=== PATIENT | male | born 1960 | race American Indian/Alaskan Native ===

== ENCOUNTER 2021-02-25 10:21 | Outpatient (CLI) | payer MEDICAID ==
[2021-02-25] MEDS ORDERED: LIDOCAINE (4%) 40 MG/ML TOPICAL SOLN 50 ML BOTTLE TP ONE ×2 (11:03→13:00)
[2021-02-25] MEDS ORDERED: VITAMIN A & D OINT 56.7 GM TP SCH (12:00)
== END 2021-02-25 10:22 | disposition home or self-care (01) ==
LOC: WOUND 10:21
PROVIDERS: ATTEND Surgery
DX: E11.621 Type 2 diabetes mellitus with foot ulcer (principal); L97.512 Non-pressure chronic ulcer of other part of right foot with fat layer exposed; I10 Essential (primary) hypertension; E11.42 Type 2 diabetes mellitus with diabetic polyneuropathy; E66.9 Obesity, unspecified; Z68.39 Body mass index [BMI] 39.0-39.9, adult; L84 Corns and callosities; Z87.891 Personal history of nicotine dependence
CPT/HCPCS: 11042; A6250; G0463; 99204

== ENCOUNTER 2021-03-04 10:31 | Outpatient (CLI) | payer MEDICAID ==
[2021-03-04] MEDS ORDERED: LIDOCAINE (4%) 40 MG/ML TOPICAL SOLN 50 ML BOTTLE TP ONE (10:33)
== END 2021-03-04 10:32 | disposition home or self-care (01) ==
LOC: WOUND 10:31
PROVIDERS: ATTEND Surgery
DX: E11.621 Type 2 diabetes mellitus with foot ulcer (principal); L97.512 Non-pressure chronic ulcer of other part of right foot with fat layer exposed; E11.42 Type 2 diabetes mellitus with diabetic polyneuropathy; I10 Essential (primary) hypertension; L84 Corns and callosities; E66.9 Obesity, unspecified; Z68.39 Body mass index [BMI] 39.0-39.9, adult; Z87.891 Personal history of nicotine dependence

== ENCOUNTER 2021-03-11 11:03 | Outpatient (CLI) | payer MEDICAID ==
[2021-03-11] MEDS ORDERED: LIDOCAINE (4%) 40 MG/ML TOPICAL SOLN 50 ML BOTTLE TP ONE (11:09)
== END 2021-03-11 11:04 | disposition home or self-care (01) ==
LOC: WOUND 11:03
PROVIDERS: ATTEND Surgery
DX: E11.621 Type 2 diabetes mellitus with foot ulcer (principal); L97.512 Non-pressure chronic ulcer of other part of right foot with fat layer exposed; E11.42 Type 2 diabetes mellitus with diabetic polyneuropathy; I10 Essential (primary) hypertension; L84 Corns and callosities; E66.9 Obesity, unspecified; Z68.39 Body mass index [BMI] 39.0-39.9, adult; Z87.891 Personal history of nicotine dependence

== ENCOUNTER 2021-03-18 14:11 | Outpatient (CLI) | payer MEDICAID ==
[2021-03-18] MEDS ORDERED: LIDOCAINE (1%) 10 MG/1 ML VIAL 20 ML MDV INFILTRATI ONE (14:19)
== END 2021-03-18 14:12 | disposition home or self-care (01) ==
LOC: WOUND 14:11
PROVIDERS: ATTEND Surgery
DX: E11.621 Type 2 diabetes mellitus with foot ulcer (principal); L97.512 Non-pressure chronic ulcer of other part of right foot with fat layer exposed; L02.611 Cutaneous abscess of right foot; E11.42 Type 2 diabetes mellitus with diabetic polyneuropathy; I10 Essential (primary) hypertension; L84 Corns and callosities; E66.9 Obesity, unspecified; Z68.39 Body mass index [BMI] 39.0-39.9, adult; Z87.891 Personal history of nicotine dependence
CPT/HCPCS: 10060

== ENCOUNTER 2021-03-25 12:55 | Inpatient (IN) | payer MEDICAID ==
--- NOTE | 2021-03-25 13:09 | Event Note ---
ED Screening Note Date of service: 03/25/21 Time: 13:08 ED Screening Note: 60-year-old diabetic hypertensive female male who presents to the ED sent from the wound center for swelling to the right foot and lower leg. This initial assessment/diagnostic orders/clinical plan/treatment(s) is/are subject to change based on patients health status, clinical progression and re- assessment by fellow clinical providers in the ED. Further treatment and workup at subsequent clinical providers discretion. Patient/guardian urged not to elope from the ED as their condition may be serious if not clinically assessed and managed. Initial orders include: CBC, CMP lactic acid mainside eval
[2021-03-25 14:33] LABS: Basophils % (Auto) 0.3 % (0.0-1.8); Eosinophils # (Auto) 0.1 K/mm3 (0.0-0.4); Eosinophils % (Auto) 0.5 % (0.0-4.3); Hematocrit 33.6 % (35.5-45.6); Hemoglobin 11.1 gm/dl (11.8-15.2); Lymphocytes % (Auto) 17.8 % (13.4-35.0); Mean Corpuscular HGB Conc 33 % (32-34); Mean Corpuscular Volume 86 fl (84-94); Monocytes # (Auto) 1.1 K/mm3 (0.0-0.8); Monocytes % (Auto) 9.8 % (0.0-7.3); Platelet Count 366 K/mm3 (140-440); Red Cell Distribution Width 16.5 % (13.2-15.2)
[2021-03-25 14:51] LABS: Alanine Aminotransferase 14 units/L (7-56); Albumin 3.4 g/dL (3.9-5); BUN/Creatinine Ratio 17; Blood Urea Nitrogen 20 mg/dL (9-20); Calcium 9.1 mg/dL (8.4-10.2); Hemolysis Index 0
[2021-03-25] MEDS ORDERED: TETANUS,DIPH,PERTUSS(ACELL) VACCINE 0.5 ML SYRINGE IM ONE (16:45)
[2021-03-25] MEDS ORDERED: VANCOMYCIN/NS 1 GM/250 ML 1 GM/250 ML BAG IV ONE (16:45)
[2021-03-25] MEDS ORDERED: AMPICILLIN/SULBACTA 3GM/100ML 3 GM/100 ML BAG IV ONE (16:45)
--- NOTE | 2021-03-25 16:55 | Emergency Department Report ---
- General Chief Complaint: Extremity Injury, Lower Stated Complaint: LEG PAIN Time Seen by Provider: 03/25/21 16:35 Source: patient Mode of arrival: Wheelchair Limitations: No Limitations, Physical Limitation - History of Present Illness Initial Comments: CC: "The doctor sent me over here." HPI: This is a 60-year-old male with history of hypertension, diabetes mellitus, right foot ulcer, peripheral vascular disease who presents with right foot swelling and redness for the past 4 days. Patient was treated for diabetic foot ulcer by his fruit coordinator 2 to 3 months ago at [facility] in [place] with incision and debridement in operating room. In office patient had a subsequent debridement by fruit coordinator. Medical Technologist Hematology then referred patient to the wound care center Dr. Parry. He has been receiving wound care. He has not received antibiotics since previous hospitalization. Over the past 4 days he has had redness and swelling of the right lower extremity to just below the knee. Dr. Dixon referred patient to ER today after routine appointment in the wound care center. Patient has moderate pain. Significant redness. Patient has had malodorous purulent drainage from the right foot ulcer which is located at the dorsal surface midfoot. Patient had first appointment with Dr. Cedric (O) new vascular surgeon. Vascular surgeon recommended surgical intervention which will occur later this summer. Patient reports subjective fever today. -: Gradual, days(s) (4 days ago) Location: other (Right foot ulcer with redness and swelling extending from the toes to just below the knee) Extremity Location: Right: Lower Leg Place: home Associated Symptoms: pain, other (Pain redness swelling) Treatments Prior to Arrival: other (Wound care evaluation) - Related Data Previous Rx's Medication Instructions Recorded Last Taken Type oxyCODONE /ACETAMINOPHEN [Percocet 1 tab PO Q6HR PRN #20 tablet 03/19/21 Unknown Rx 325] Allergies Allergy/AdvReac Type Severity Reaction Status Date / Time No Known Allergies Allergy Verified 03/25/21 13:02 ED Review of Systems ROS: Stated complaint: LEG PAIN Other details as noted in HPI Comment: All other systems reviewed and negative Constitutional: fever Respiratory: denies: cough, shortness of breath Gastrointestinal: denies: abdominal pain, nausea, vomiting Skin: rash, lesions ED Past Medical Hx - Past Medical History Previous Medical History?: Yes Hx Hypertension: Yes Hx Diabetes: Yes Additional medical history: Peripheral vascular disease - Surgical History Past Surgical History?: Yes Additional Surgical History: FOOT SURGERY - Social History Smoking Status: Current Every Day Smoker Substance Use Type: None - Medications Home Medications: Home Medications Medication Instructions Recorded Confirmed Last Taken Type oxyCODONE /ACETAMINOPHEN [Percocet 1 tab PO Q6HR PRN #20 tablet 03/19/21 Unknown Rx 5/325] ED Physical Exam - General Limitations: No Limitations General appearance: alert, in no apparent distress - Head Head exam: Present: atraumatic, normocephalic - Eye Eye exam: Present: normal appearance - ENT ENT exam: Present: mucous membranes moist - Neck Neck exam: Present: normal inspection, full ROM - Respiratory Respiratory exam: Present: normal lung sounds bilaterally. Absent: respiratory distress, wheezes, rales, rhonchi - Cardiovascular Cardiovascular Exam: Present: normal rhythm, tachycardia, normal heart sounds. Absent: systolic murmur, diastolic murmur, rubs, gallop - GI/Abdominal GI/Abdominal exam: Present: soft, normal bowel sounds. Absent: distended, tenderness, guarding, rebound - Rectal Rectal exam: Present: deferred - Extremities Exam Extremities exam: Present: other (Right lower extremity just below the knee redness extending to the toes. Edematous pitting skin. Hyperpigmentation lower portion of the leg extending to the foot. Foot is hot to touch. Mid dorsum: Deep 2 x 3 ulcer with iodoform soaked with purulent drainage) - Neurological Exam Neurological exam: Present: alert, oriented X3 - Psychiatric Psychiatric exam: Present: normal affect, normal mood - Skin Skin exam: Present: warm, dry, intact, normal color. Absent: rash - Other Other exam information: 1+ DP pulse palpated ED Course Vital Signs 03/25/21 03/25/21 03/25/21 13:08 16:41 17:01 Temperature 98.5 F Pulse Rate 117 H 101 H 95 H Respiratory 20 16 21 Rate Blood Pressure 125/62 O2 Sat by Pulse 97 98 97 Oximetry 03/25/21 17:31 Temperature Pulse Rate 100 H Respiratory 14 Rate Blood Pressure 131/57 O2 Sat by Pulse 98 Oximetry ED Medical Decision Making - Lab Data Result diagrams: 03/25/21 13:54 03/25/21 13:54 Laboratory Results - last 24 hr 03/25/21 03/25/2121 13:54 13:54 13:54 WBC 11.1 H RBC 3.90 Hgb 11.1 L Hct 33.6 L MCV 86 MCH 29 MCHC 33 RDW 16.5 H Plt Count 366 Lymph % (Auto) 17.8 Payne % (Auto) 9.8 H Eos % (Auto) 0.5 Baso % (Auto) 0.3 Lymph # (Auto) 2.0 Payne # (Auto) 1.1 H Eos # (Auto) 0.1 Baso # (Auto) 0.0 Seg Neutrophils % 71.6 H Seg Neutrophils # 8.0 H Sodium 133 L Potassium 3.9 Chloride 93.6 L Carbon Dioxide 25 Anion Gap 18 BUN 20 Creatinine 1.2 Estimated GFR > 60 BUN/Creatinine Ratio 17 Glucose 138 H Lactic Acid 2.00 Calcium 9.1 Total Bilirubin 0.80 AST 13 ALT 14 Alkaline Phosphatase 71 Total Protein 8.7 H Albumin 3.4 L Albumin/Globulin Ratio 0.6 - Radiology Data Radiology results: report reviewed Patient Name: DOYLE BIRCH Gender: Male Date of : 1960 Referring Provider: HORACIO CHAMPION Organization: [facility] Accession Number: [id number] Requested Date: March 25, 2021 16:44 Report Status: Final Requested Procedure: 1 Procedure Description: XR foot 2V RT Modality: XR Findings Reporting MD: Moreno Benitez Dictation Time: March 25, 2021 16:19 Public Speaker: Not available Interior Design Faculty Member Date: CLINICAL DATA: FOOT ULCER INFECTION TECHNICAL DATA: Two views were obtained, AP and lateral. FINDINGS: Marked soft tissue edema especially over the ventral aspect of the ankle and foot Bone mineralization is normal. There is no acute fracture or dislocation. The visualized joint spaces are normal. IMPRESSION: Markedly abnormal soft tissues of the foot, recommend MR to exclude osteomyelitis Signer Name: Moreno Benitez MD Signed: 03/25/2021 4:19 PM Workstation Name: [id number] Patient Name: DOYLE BIRCH Gender: Male Date of : 1960 Referring Provider: HORACIO CHAMPION Organization: [facility] Accession Number: [id number] Requested Date: March 25, 2021 16:44 Report Status: Final Requested Procedure: 1 Procedure Description: VL venous duplex LE RT Modality: VL Findings Reporting MD: Tyron Clark Dictation Time: March 25, 2021 16:37 Public Speaker: Not available Interior Design Faculty Member Date: DUPLEX DOPPLER LOWER EXTREMITY VEINS, RIGHT INDICATION / CLINICAL INFORMATION: LEG SWELLING REDNESS. TECHNIQUE: Duplex doppler imaging was performed through the veins of the right lower extremity using venous compression and other maneuvers. COMPARISON: None available. FINDINGS: RIGHT COMMON FEMORAL VEIN: Negative. RIGHT FEMORAL VEIN: Negative. RIGHT POPLITEAL VEIN: Negative. RIGHT CALF VEINS: Negative. ADDITIONAL FINDINGS: None. IMPRESSION: 1. No sonographic evidence for DVT in the right lower extremity. Signer Name: Tyron Clark MD Signed: 03/25/2021 4:37 PM Workstation Name: [id number] - Medical Decision Making Diabetic foot ulcer, diabetic foot infection: Patient will require IV antibiotics for extensive cellulitis and risk of progression to necrotizing infection. White count 11,000, lactic acid 2.0. Dr. Renato Dixon general surgeon consulted. Treatment in the emergency department include: Tdap booster, Unasyn and vancomycin. In order to evaluate the foot and wound, I removed move the dressing that was placed by wound care staff. I left iodoform in place. Dressing was replaced by nurse body service team member. Patient is admitted to the hospital service in stable condition. Repeat heart rate 95 bpm. Critical care attestation.: If time is entered above; I have spent that time in minutes in the direct care of this critically ill patient, excluding procedure time. ED Disposition Clinical Impression: Diabetic foot ulcer, Diabetic infection of right foot, Cellulitis of right lower extremity Disposition: OP ADMIT IP TO THIS HOSP Is pt being admited?: Yes Does the pt Need Aspirin: No Condition: Stable Instructions: Diabetes Mellitus Type 2 in Adults (ED) Referrals: MELODIE STEVENSON MD [Primary Care Provider] - 3-5 Days
--- NOTE | 2021-03-25 17:24 | XRay Report ---
CLINICAL DATA: FOOT ULCER INFECTION TECHNICAL DATA: Two views were obtained, AP and lateral. FINDINGS: Marked soft tissue edema especially over the ventral aspect of the ankle and foot Bone mineralization is normal. There is no acute fracture or dislocation. The visualized joint spaces are normal. IMPRESSION: Markedly abnormal soft tissues of the foot, recommend MR to exclude osteomyelitis Signer Name: Moreno Benitez MD Signed: 03/25/2021 5:19 PM Workstation Name: [id number]
--- NOTE | 2021-03-25 17:42 | Vascular Lab Report ---
DUPLEX DOPPLER LOWER EXTREMITY VEINS, RIGHT INDICATION / CLINICAL INFORMATION: LEG SWELLING REDNESS. TECHNIQUE: Duplex doppler imaging was performed through the veins of the right lower extremity using venous comp ression and other maneuvers. COMPARISON: None available. FINDINGS: RIGHT COMMON FEMORAL VEIN: Negative. RIGHT FEMORAL VEIN: Negative. RIGHT POPLITEAL VEIN: Negative. RIGHT CALF VEINS: Negative. ADDITIONAL FINDINGS: None. IMPRESSION: 1. No sonographic evidence for DVT in the right lower extremity. Signer Name: Tyron Clark MD Signed: 03/25/2021 5:37 PM Workstation Name: [id number]
[2021-03-25] MEDS ORDERED: MORPHINE 4 MG/1 ML INJ IV ONE (18:05)
[2021-03-25] MEDS ORDERED: ONDANSETRON 4 MG/2 ML INJ IV ONE (18:05)
[2021-03-25] MEDS ORDERED: oxyCODONE /ACETAMINOPHEN 5-325MG TAB PO ONE ×2 (18:16→19:10)
[2021-03-25] MEDS ORDERED: HYDROmorphone 1 MG/1 ML INJ IV PRN (23:25)
[2021-03-25] MEDS ORDERED: ONDANSETRON 4 MG/2 ML INJ IV PRN (23:25)
[2021-03-25] MEDS ORDERED: METOCLOPRAMIDE 10 MG/2 ML INJ IV PRN (23:25)
--- NOTE | 2021-03-25 23:25 | History and Physical Report ---
History of Present Illness Date of examination: 03/25/21 Date of admission: 03/25/21 16:57 Chief complaint: Right foot infection and abscess for 3 to 4 weeks History of present illness: 60-year-old -Micron[place] male with history of hypertension, diabetes, peripheral arterial disease comes in for right foot ulcer, swelling and redness for the last 4 days. Patient apparently saw her fisherman helper about 1 to 2 months ago at [facility] in [place] and had a incision and drainage followed by placement of a drain in the right foot dorsal aspect. Patient was placed on antibiotics. Patient was referred to the wound care center and was receiving wound care. Over the past 3 to 4 days patient has been having increasing redness and swelling of the right lower extremity after knee. Patient was referred by Dr. Dixon for emergency room for further care. Patient had first appointment with her in with a poor effort for right [facility] and [place]. Patient has purulent discharge from the right foot ulcer. Patient was also recommended vascular surgery consult at that time. - Past Medical History Previous Medical History?: Yes Hx Hypertension: Yes Hx Diabetes: Yes Additional medical history: Peripheral vascular disease - Surgical History Past Surgical History?: Yes Additional Surgical History: FOOT SURGERY - Social History Smoking Status: Current Every Day Smoker Substance Use Type: None - Medications Home Medications: Home Medications Medication Instructions Recorded Confirmed Last Taken Type oxyCODONE /ACETAMINOPHEN [Percocet 1 tab PO Q6HR PRN #20 tablet 03/19/21 Unknown Rx 5/325] Review of Systems ROS: Skin right foot ulcer with extensive cellulitis up to the right knee, drain present in the right foot incision and drainage place Constitutional no weight loss or weight gain no fever or chills HEENT no sore throat no post nasal drip no diplopia Neck no neck stiffness no lymph gland enlargement Chest and lungs no shortness of breath cough or wheezing CVS no chest pain no diaphoresis no palpitations GI no nausea no vomiting no diarrhea Genitourinary system no dysuria no flank pain Musculoskeletal system no muscle pains no joint pains 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 no seizures Psychiatric no depression no homicidal or suicidal tendencies Hematologic no lymphedema or bruising Endocrine no polydipsia no polyuria no cold intolerance no heat intolerance Medications and Allergies Allergies Allergy/AdvReac Type Severity Reaction Status Date / Time No Known Allergies Allergy Verified 03/25/21 13:02 Home Medications Medication Instructions Recorded Confirmed Last Taken Type oxyCODONE /ACETAMINOPHEN [Percocet 1 tab PO Q6HR PRN #20 tablet 03/19/21 Unknown Rx 5/325] Exam - Constitutional Vitals: Temp Pulse Resp BP Pulse Ox 98.9 F 102 H 20 132/70 95 03/25/21 20:11 03/25/21 20:11 03/25/21 20:11 03/25/21 20:11 03/25/21 20:11 General appearance: Present: no acute distress, well-nourished - EENT Eyes: Present: PERRL ENT: hearing intact, clear oral mucosa - Neck Neck: Present: supple, normal ROM - Respiratory Respiratory effort: normal Respiratory: bilateral: CTA - Cardiovascular Heart rate: 78 Rhythm: regular Heart Sounds: Present: S1 & S2. Absent: rub, click - Extremities Extremities: pulses symmetrical, No edema, abnormal (Right foot swollen with incision and drainage wound with a drain and purulent discharge. Right foot swollen with swelling extending up to the right knee) Extremity abnormal: other (Right foot incision wound with a drain. Purulent drainage present. Swelling of the right foot and swelling of the right leg present up to the knee) Peripheral Pulses: within normal limits - Abdominal General gastrointestinal: Present: soft, non-tender, non-distended, normal bowel sounds Male genitourinary: Present: normal - Integumentary Integumentary: Present: clear, warm, dry - Musculoskeletal Musculoskeletal: gait normal, strength equal bilaterally - Psychiatric Psychiatric: appropriate mood/affect, intact judgment & insight - Neurologic Neurologic: CNII-XII intact, moves all extremities Results - Labs CBC & Chem 7: 03/25/21 13:54 03/25/21 13:54 Labs: Laboratory Last Values WBC 11.1 K/mm3 (4.5-11.0) H 03/25/21 13:54 RBC 3.90 M/mm3 (3.65-5.03) 03/25/21 13:54 Hgb 11.1 gm/dl (11.8-15.2) L 03/25/21 13:54 Hct 33.6 % (35.5-45.6) L 03/25/21 13:54 MCV 86 fl (84-94) 03/25/21 13:54 MCH 29 pg (28-32) 03/25/21 13:54 MCHC 33 % (32-34) 03/25/21 13:54 RDW 16.5 % (13.2-15.2) H 03/25/21 13:54 Plt Count 366 K/mm3 (140-440) 03/25/21 13:54 Lymph % (Auto) 17.8 % (13.4-35.0) 03/25/21 13:54 Sunflower % (Auto) 9.8 % (0.0-7.3) H 03/25/21 13:54 Eos % (Auto) 0.5 % (0.0-4.3) 03/25/21 13:54 Baso % (Auto) 0.3 % (0.0-1.8) 03/25/21 13:54 Lymph # (Auto) 2.0 K/mm3 (1.2-5.4) 03/25/21 13:54 Sunflower # (Auto) 1.1 K/mm3 (0.0-0.8) H 03/25/21 13:54 Eos # (Auto) 0.1 K/mm3 (0.0-0.4) 03/25/21 13:54 Baso # (Auto) 0.0 K/mm3 (0.0-0.1) 03/25/21 13:54 Seg Neutrophils % 71.6 % (40.0-70.0) H 03/25/21 13:54 Seg Neutrophils # 8.0 K/mm3 (1.8-7.7) H 03/25/21 13:54 Sodium 133 mmol/L (137-145) L 03/25/21 13:54 Potassium 3.9 mmol/L (3.6-5.0) 03/25/21 13:54 Chloride 93.6 mmol/L (98-107) L 03/25/21 13:54 Carbon Dioxide 25 mmol/L (22-30) 03/25/21 13:54 Anion Gap 18 mmol/L 03/25/21 13:54 BUN 20 mg/dL (9-20) 03/25/21 13:54 Creatinine 1.2 mg/dL (0.8-1.3) 03/25/21 13:54 Estimated GFR > 60 ml/min 03/25/21 13:54 BUN/Creatinine Ratio 17 % 03/25/21 13:54 Glucose 138 mg/dL (75-100) H 03/25/21 13:54 Lactic Acid 2.00 mmol/L (0.7-2.0) 03/25/21 13:54 Calcium 9.1 mg/dL (8.4-10.2) 03/25/21 13:54 Total Bilirubin 0.80 mg/dL (0.1-1.2) 03/25/21 13:54 AST 13 units/L (5-40) 03/25/21 13:54 ALT 14 units/L (7-56) 03/25/21 13:54 Alkaline Phosphatase 71 units/L (35-129) 03/25/21 13:54 Total Protein 8.7 g/dL (6.3-8.2) H 03/25/21 13:54 Albumin 3.4 g/dL (3.9-5) L 03/25/21 13:54 Albumin/Globulin Ratio 0.6 % 03/25/21 13:54 Short CBC 03/25/21 Range/Units 13:54 WBC 11.1 H (4.5-11.0) K/mm3 Hgb 11.1 L (11.8-15.2) gm/dl Hct 33.6 L (35.5-45.6) % Plt Count 366 (140-440) K/mm3 BMP 03/25/21 13:54 Sodium 133 L Potassium 3.9 Chloride 93.6 L Carbon Dioxide 25 BUN 20 Creatinine 1.2 Glucose 138 H Calcium 9.1 Liver Function 03/25/21 Range/Units 13:54 Total Bilirubin 0.80 (0.1-1.2) mg/dL AST 13 (5-40) units/L ALT 14 (7-56) units/L Alkaline Phosphatase 71 (35-129) units/L Albumin 3.4 L (3.9-5) g/dL Chin/IV: Voiding Method Urinal Assessment and Plan Advance Directives: Yes (Full code) VTE prophylaxis?: Chemical Plan of care discussed with patient/family: Yes - Patient Problems (1) SIRS (systemic inflammatory response syndrome) Current Visit: Yes Status: Acute Plan to address problem: Patient has leukocytosis and tachycardia secondary to right lower extremity cellulitis and right foot abscess (2) Cellulitis of right lower extremity Current Visit: Yes Status: Acute Plan to address problem: Patient initiated on IV antibiotics in the form of Unasyn and vancomycin Wound cultures Surgery consult ID consult (3) Hypertension Current Visit: Yes Status: Chronic Qualifiers: Hypertension type: essential hypertension Qualified Code(s): I10 - Emily freeman (primary) hypertension Plan to address problem: Continue antihypertensives and adjust medications as necessary (4) Type 2 diabetes mellitus Current Visit: Yes Status: Chronic Qualifiers: Diabetes mellitus terminal make up operator insulin use: unspecified senior care insulin use status Plan to address problem: Tight control of blood glucose levels Check hemoglobin A1c Adjust insulin (5) Peripheral arterial disease Current Visit: Yes Status: Chronic Plan to address problem: Duplex scan of right lower extremity Vascular surgery consult (6) DVT prophylaxis Current Visit: Yes Status: Acute Plan to address problem: On heparin and GI prophylaxis
[2021-03-25] MEDS ORDERED: SODIUM CHLORIDE 0.9% 1000 ML 1,000 ML IV SCH (23:30)
[2021-03-25] MEDS ORDERED: VANCOMYCIN PHARMACY TO DOSE IV SCH (23:45)
[2021-03-26] MEDS: AMPICILLIN/SULBACTA 3GM/100ML 3 GM/100 ML BAG IV SCH ×3 (00:20→13:44)
[2021-03-26] MEDS: oxyCODONE /ACETAMINOPHEN 5-325MG TAB PO PRN ×3 (00:20→21:23)
[2021-03-26] MEDS ORDERED: VANCOMYCIN 2,000 MG in SODIUM CHLORIDE 0.9% 500 ML 500 ML IV SCH (04:00)
[2021-03-26 08:26] LABS: Basophils % (Auto) 0.3 % (0.0-1.8); Eosinophils % (Auto) 0.5 % (0.0-4.3); Hemoglobin 10.7 gm/dl (11.8-15.2); Lymphocytes % (Auto) 18.8 % (13.4-35.0); Mean Corpuscular HGB Conc 33 % (32-34); Mean Corpuscular Volume 84 fl (84-94); Monocytes # (Auto) 1.1 K/mm3 (0.0-0.8); Platelet Count 356 K/mm3 (140-440); Red Cell Distribution Width 16.1 % (13.2-15.2)
[2021-03-26] MEDS: FAMOTIDINE 20 MG TAB PO SCH ×3 (08:39→21:18)
[2021-03-26] MEDS: INSULIN LISPRO 100 UNIT/ML SUB-Q SCH ×4 (08:39→23:37)
[2021-03-26 09:03] LABS: Alanine Aminotransferase 24 units/L (7-56); Albumin 2.7 g/dL (3.9-5); BUN/Creatinine Ratio 15; Blood Urea Nitrogen 15 mg/dL (9-20); Calcium 8.9 mg/dL (8.4-10.2); Hemolysis Index 10
--- NOTE | 2021-03-26 13:56 | Vascular Lab Report ---
DUPLEX DOPPLER LOWER EXTREMITY ARTERIAL, BILATERAL INDICATION: Right foot ulcer with cellulitis. TECHNIQUE: Arterial duplex examination of both lower extremities performed using B-mode, color flow and spectral Doppler assessment. FINDINGS: RIGHT: Common Femoral Artery: PSV 134 cm/sec. Triphasic waveform. Proximal SFA: PSV 163 cm/sec. Triphasic waveform. Mid SFA: PSV 133 cm/sec. Triphasic waveform. Distal SFA: PSV 137 cm/sec. Biphasic waveform. Popliteal artery: PSV 136 cm/sec. Biphasic waveform. Posterior tibial artery: PSV 95 cm/sec. Biphasic waveform. Dorsalis Pedis Artery: PSV 89 cm/sec. Biphasic waveform. LEFT: Common Femoral Artery: PSV 137 cm/sec. Triphasic waveform. Proximal SFA: PSV 150 cm/sec. Triphasic waveform. Mid SFA: PSV 107 cm/sec. Triphasic waveform. Distal SFA: PSV 90 cm/sec. Triphasic waveform. Popliteal artery: PSV 84 cm/sec. Triphasic waveform. Posterior tibial artery: PSV 138 cm/sec. Triphasic waveform. Dorsalis Pedis Artery: PSV 36 cm/sec. Biphasic waveform. Right LENA: Not obtained, patient could not tolerate measurement due to pain. Left LENA: 1.29. IMPRESSION: No sonographic evidence of hemodynamically significant lower extremity peripheral artery disease. Signer Name: Dwayne Vela MD Signed: 03/26/2021 1:52 PM Workstation Name: [id number]
--- NOTE | 2021-03-26 14:07 | Consultation ---
History of Present Illness Consult date: 03/26/21 Chief complaint: Right foot wound - History of present illness History of present illness: 60-year-old male with history of diabetes, morbid obesity who presents to the ER as a referral from Dr. Dixon who most recently saw the patient in the wound care center on 03/25/2021. The patient has had a abscess of his right d orsal foot for more than 1 month. He underwent incision and drainage by his rag production worker as an outpatient and then was referred to the wound care clinic. Patient also underwent an MRI of the right foot as an outpatient. MRI was reviewed last Thursday and showed an underlying right foot abscess with evidence of early osteomyelitis. He underwent incision and drainage with unroofing of the abscess in the wound care center on 03/18 by me. He followed up with Dr. Dixon at [facility] yesterday and complained of increased redness and pain in his right leg which was new for 4 to 5 days. He was sent to the ER for further management. Patient is admitted for right lower extremity cellulitis and has undergone x-ray of the right foot along with venous duplex. He has also scheduled to have arterial vascular studies of the lower extremities with vascular consultation. Patient was started on IV antibiotics. Patient states he is having sharp pain in the area of cellulitis which is controlled with current pain regimen. He is able to ambulate. He states he was having low-grade fevers at home. No nausea or vomiting. No chest pain or shortness of breath. Past History Past Medical History: diabetes, hypertension, hyperlipidemia, other (Obesity) Past Surgical History: Other (Right foot I&D) Social history: no significant social history Family history: no significant family history Medications and Allergies Allergies Allergy/AdvReac Type Severity Reaction Status Date / Time No Known Allergies Allergy Verified 03/25/21 13:02 Home Medications Medication Instructions Recorded Confirmed Last Taken Type oxyCODONE /ACETAMINOPHEN [Percocet 1 tab PO Q6HR PRN #20 tablet 03/19/21 Unknown Rx 5/325] Active Meds: Active Medications Acetaminophen (Acetaminophen 325 Mg Tab) 650 mg PO Q4H PRN PRN Reason: Pain MILD(1-3)/Fever >100.5/JULIAN Famotidine (Famotidine 20 Mg Tab) 20 mg PO BID LISA Last Admin: 03/26/21 09:05 Dose: Not Given Documented by: Hydromorphone HCl (Hydromorphone 1 Mg/1 Ml Inj) 0.5 mg IV Q3H PRN PRN Reason: Pain , Severe (7-10) Ampicillin Sodium/Sulbactam Sodium (Unasyn/Ns 3 Gm/100 Ml) 3 gm in 100 mls @ 100 mls/hr IV Q6HR [facility]; Protocol Last Admin: 03/26/21 13:44 Dose: 100 mls/hr Documented by: Vancomycin HCl 1,750 mg/ (Sodium Chloride) 535 mls @ 333.333 mls/hr IV Q12H LISA Insulin Human Lispro (Insulin Lispro 100 Unit/Ml) 0 unit SUB-Q ACHS [facility]; Protocol Last Admin: 03/26/21 13:50 Dose: Not Given Documented by: Metoclopramide HCl (Metoclopramide 10 Mg/2 Ml Inj) 10 mg IV Q6H PRN PRN Reason: Nausea And Vomiting Ondansetron HCl (Ondansetron 4 Mg/2 Ml Inj) 4 mg IV Q3H PRN PRN Reason: Nausea And Vomiting Oxycodone/Acetaminophen (Oxycodone /Acetaminophen 5-325mg Tab) 2 tab PO Q6H PRN PRN Reason: Pain, Moderate (4-6) Last Admin: 03/26/21 13:56 Dose: 2 tab Documented by: Sodium Chloride (Sodium Chloride 0.9% 10 Ml Flush Syringe) 10 ml IV BID [facility] Last Admin: 03/26/21 13:40 Dose: 10 ml Documented by: Sodium Chloride (Sodium Chloride 0.9% 10 Ml Flush Syringe) 10 ml IV PRN PRN PRN Reason: LINE FLUSH Review of Systems All systems: negative (10 point ROS performed and negative except for that listed in HPI) Exam Vital Signs Temp Pulse Resp BP Pulse Ox 98.5 F 117 H 20 125/62 97 03/25/21 13:08 03/25/21 13:08 03/25/21 13:08 03/25/21 13:08 03/25/21 13:08 Narrative exam: Gen.: Awake, alert, oriented x3. No apparent distress ENT: Trachea midline. No lymphadenopathy. No scleral icterus or conjunctival pallor CV: S1, S2 present Respiratory: No audible wheezes Extremities: Right lower extremity with 3+ pitting edema of the lower leg extending to the foot. There is cellulitis present involving the anterior lower leg. There is a right foot dressing in place which is clean, dry, intact. There is mild tenderness to palpation of the anterior lower leg. There is no te nderness of the calf area. There is no edema, erythema of the left leg. Results - Labs 03/26/21 08:01 03/26/21 08:01 Abnormal lab results 03/25/21 03/25/21 03/25/21 Range/Units 13:54 13:54 20:52 WBC 11.1 H (4.5-11.0) K/mm3 Hgb 11.1 L (11.8-15.2) gm/dl Hct 33.6 L (35.5-45.6) % RDW 16.5 H (13.2-15.2) % [place] % (Auto) 9.8 H (0.0-7.3) % [place] # (Auto) 1.1 H (0.0-0.8) K/mm3 Seg Neutrophils % 71.6 H (40.0-70.0) % Seg Neutrophils # 8.0 H (1.8-7.7) K/mm3 Sodium 133 L (137-145) mmol/L Chloride 93.6 L (98-107) mmol/L Glucose 138 H (75-100) mg/dL POC Glucose 109 H (70-105) mg/dL Hemoglobin A1c (4-6) % AST (5-40) units/L Total Protein 8.7 H (6.3-8.2) g/dL Albumin 3.4 L (3.9-5) g/dL 03/26/21 03/26/21 03/26/21 Range/Units 07:38 08:01 08:01 WBC (4.5-11.0) K/mm3 Hgb 10.7 L (11.8-15.2) gm/dl Hct 32.0 L (35.5-45.6) % RDW 16.1 H (13.2-15.2) % [place] % (Auto) 10.0 H (0.0-7.3) % [place] # (Auto) 1.1 H (0.0-0.8) K/mm3 Seg Neutrophils % 70.4 H (40.0-70.0) % Seg Neutrophils # (1.8-7.7) K/mm3 Sodium 130 L (137-145) mmol/L Chloride 95.3 L (98-107) mmol/L Glucose 124 H (75-100) mg/dL POC Glucose 121 H (70-105) mg/dL Hemoglobin A1c (4-6) % AST 44 H (5-40) units/L Total Protein 8.3 H (6.3-8.2) g/dL Albumin 2.7 L (3.9-5) g/dL 03/26/21 Range/Units 08:01 WBC (4.5-11.0) K/mm3 Hgb (11.8-15.2) gm/dl Hct (35.5-45.6) % RDW (13.2-15.2) % [place] % (Auto) (0.0-7.3) % [place] # (Auto) (0.0-0.8) K/mm3 Seg Neutrophils % (40.0-70.0) % Seg Neutrophils # (1.8-7.7) K/mm3 Sodium (137-145) mmol/L Chloride (98-107) mmol/L Glucose (75-100) mg/dL POC Glucose (70-105) mg/dL Hemoglobin A1c 6.7 H (4-6) % AST (5-40) units/L Total Protein (6.3-8.2) g/dL Albumin (3.9-5) g/dL Diabetes panel 03/25/21 03/26/21 03/26/21 Range/Units 13:54 08:01 08:01 Sodium 133 L 130 L (137-145) mmol/L Potassium 3.9 4.0 (3.6-5.0) mmol/L Chloride 93.6 L 95.3 L (98-107) mmol/L Carbon Dioxide 25 22 (22-30) mmol/L BUN 20 15 (9-20) mg/dL Creatinine 1.2 1.0 (0.8-1.3) mg/dL Glucose 138 H 124 H (75-100) mg/dL Hemoglobin A1c 6.7 H (4-6) % Calcium 9.1 8.9 (8.4-10.2) mg/dL AST 13 44 H (5-40) units/L ALT 14 24 (7-56) units/L Alkaline Phosphatase 71 97 (35-129) units/L Total Protein 8.7 H 8.3 H (6.3-8.2) g/dL Albumin 3.4 L 2.7 L (3.9-5) g/dL Calcium panel 03/25/21 03/26/21 Range/Units 13:54 08:01 Calcium 9.1 8.9 (8.4-10.2) mg/dL Albumin 3.4 L 2.7 L (3.9-5) g/dL Pituitary panel 03/25/21 03/26/21 Range/Units 13:54 08:01 Sodium 133 L 130 L (137-145) mmol/L Potassium 3.9 4.0 (3.6-5.0) mmol/L Chloride 93.6 L 95.3 L (98-107) mmol/L Carbon Dioxide 25 22 (22-30) mmol/L BUN 20 15 (9-20) mg/dL Creatinine 1.2 1.0 (0.8-1.3) mg/dL Glucose 138 H 124 H (75-100) mg/dL Calcium 9.1 8.9 (8.4-10.2) mg/dL Adrenal panel 03/25/21 03/26/21 Range/Units 13:54 08:01 Sodium 133 L 130 L (137-145) mmol/L Potassium 3.9 4.0 (3.6-5.0) mmol/L Chloride 93.6 L 95.3 L (98-107) mmol/L Carbon Dioxide 25 22 (22-30) mmol/L BUN 20 15 (9-20) mg/dL Creatinine 1.2 1.0 (0.8-1.3) mg/dL Glucose 138 H 124 H (75-100) mg/dL Calcium 9.1 8.9 (8.4-10.2) mg/dL Total Bilirubin 0.80 1.20 (0.1-1.2) mg/dL AST 13 44 H (5-40) units/L ALT 14 24 (7-56) units/L Alkaline Phosphatase 71 97 (35-129) units/L Total Protein 8.7 H 8.3 H (6.3-8.2) g/dL Albumin 3.4 L 2.7 L (3.9-5) g/dL - Imaging Additional studies: X-ray right foot Venous duplex right lower extremity Arterial ultrasound lower extremity Assessment and Plan 60-year-old male with diabetic right foot wound and right lower extremity cellulitis Xray right foot - "Markedly abnormal soft tissues of the foot, recommend MR to exclude osteomyelitis." Venous duplex LE - no DVT Arterial u/s LE - "No sonographic evidence of hemodynamically significant lower extremity peripheral arterial disease." Plan: 1. Diabetic diet. HbA1C is 6.7 2. Strict glucose control 3. prn pain control 4. vascular surgery consulted 5. ID consulted - d/w Dr. Redmond. Patient had recent outpatient MRI R foot with evidence of early osteomyelitis. Will follow up with rotary kiln operator regarding cultures obtained in clinic last week. If no cultures available, will culture wound. 6. continue wound care - packing wound with mesalt daily. 7. monitor for improvement in cellulitis/edema - may need reimaging with CT or MR if no improvement. 8. on IV abx Thank you, please call with questions.
--- NOTE | 2021-03-26 14:30 | Progress Note ---
Assessment and Plan Assessment and plan: --SIRS (systemic inflammatory response syndrome) Current Visit: Yes Status: Acute Patient has leukocytosis and tachycardia secondary to right lower extremity cellulitis and right foot abscess --Diabetic wound/ of right lower extremity Current Visit: Yes Status: Acute Patient initiated on IV antibiotics in the form of Unasyn and vancomycin Wound cultures, Surgery evaluation noted and appreciated Check MRI right foot to rule out osteomyelitis ID consult, surgery evaluation noted and appreciated -- Hypertension Current Visit: Yes Status: Chronic : Continue antihypertensives and adjust medications as necessary --Hyponatremia; Normal saline, monitor electrolytes --Severe protein calorie malnutrition; Hypoalbuminemia nutrition supplements. Nutrition consul --Type 2 diabetes mellitus Current Visit: Yes Status: Chronic t Tight control of blood glucose levels Check hemoglobin A1c Adjust insulin --Peripheral arterial disease Current Visit: Yes Status: Chronic Duplex scan of right lower extremity Vascular surgery consult --DVT prophylaxis Current Visit: Yes Status: Acute On heparin and GI prophylaxis Advance Directives: Yes (Full code) VTE prophylaxis?: Chemical Plan of care discussed with patient/family: Yes Closely monitor the patient and adjust management as needed History Interval history: I have seen and examined the patient at the bedside Patient's chart and medications reviewed Patient complains of some right foot pain Receiving IV antibiotics and pain medications Vital signs noted Hospitalist Physical - Constitutional Vitals: Temp Pulse Resp BP Pulse Ox 98.6 F 98 H 16 147/78 97 03/26/21 07:35 03/26/21 07:35 03/26/21 07:35 03/26/21 07:35 03/26/21 07:35 General appearance: Present: no acute distress, well-nourished - EENT Eyes: Present: PERRL, EOM intact - Neck Neck: Present: supple, normal ROM - Respiratory Respiratory effort: normal Respiratory: bilateral: diminished, rhonchi, negative: rales, wheezing - Cardiovascular Rhythm: regular Heart Sounds: Present: S1 & S2 - Extremities Extremities: no ischemia, No edema, abnormal (Right foot dressing in place) - Abdominal General gastrointestinal: soft, non-tender, non-distended, normal bowel sounds - Integumentary Integumentary: Present: clear, warm - Psychiatric Psychiatric: appropriate mood/affect, cooperative - Neurologic Neurologic: CNII-XII intact, moves all extremities Results - Labs CBC & Chem 7: 03/26/21 08:01 03/26/21 08:01 Labs: Laboratory Last Values WBC 10.5 K/mm3 (4.5-11.0) 03/26/21 08:01 RBC 3.80 M/mm3 (3.65-5.03) 03/26/21 08:01 Hgb 10.7 gm/dl (11.8-15.2) L 03/26/21 08:01 Hct 32.0 % (35.5-45.6) L 03/26/21 08:01 MCV 84 fl (84-94) 03/26/21 08:01 MCH 28 pg (28-32) 03/26/21 08:01 MCHC 33 % (32-34) 03/26/21 08:01 RDW 16.1 % (13.2-15.2) H 03/26/21 08:01 Plt Count 356 K/mm3 (140-440) 03/26/21 08:01 Lymph % (Auto) 18.8 % (13.4-35.0) 03/26/21 08:01 [place] % (Auto) 10.0 % (0.0-7.3) H 03/26/21 08:01 Eos % (Auto) 0.5 % (0.0-4.3) 03/26/21 08:01 Baso % (Auto) 0.3 % (0.0-1.8) 03/26/21 08:01 Lymph # (Auto) 2.0 K/mm3 (1.2-5.4) 03/26/21 08:01 [place] # (Auto) 1.1 K/mm3 (0.0-0.8) H 03/26/21 08:01 Eos # (Auto) 0.0 K/mm3 (0.0-0.4) 03/26/21 08:01 Baso # (Auto) 0.0 K/mm3 (0.0-0.1) 03/26/21 08:01 Seg Neutrophils % 70.4 % (40.0-70.0) H 03/26/21 08:01 Seg Neutrophils # 7.4 K/mm3 (1.8-7.7) 03/26/21 08:01 Sodium 130 mmol/L (137-145) L 03/26/21 08:01 Potassium 4.0 mmol/L (3.6-5.0) 03/26/21 08:01 Chloride 95.3 mmol/L (98-107) L 03/26/21 08:01 Carbon Dioxide 22 mmol/L (22-30) 03/26/21 08:01 Anion Gap 17 mmol/L 03/26/21 08:01 BUN 15 mg/dL (9-20) 03/26/21 08:01 Creatinine 1.0 mg/dL (0.8-1.3) 03/26/21 08:01 Estimated GFR > 60 ml/min 03/26/21 08:01 BUN/Creatinine Ratio 15 % 03/26/21 08:01 Glucose 124 mg/dL (75-100) H 03/26/21 08:01 POC Glucose 121 mg/dL (70-105) H 03/26/21 07:38 Hemoglobin A1c 6.7 % (4-6) H 03/26/21 08:01 Lactic Acid 2.00 mmol/L (0.7-2.0) 03/25/21 13:54 Calcium 8.9 mg/dL (8.4-10.2) 03/26/21 08:01 Total Bilirubin 1.20 mg/dL (0.1-1.2) 03/26/21 08:01 AST 44 units/L (5-40) H 03/26/21 08:01 ALT 24 units/L (7-56) 03/26/21 08:01 Alkaline Phosphatase 97 units/L (35-129) 03/26/21 08:01 Total Protein 8.3 g/dL (6.3-8.2) H 03/26/21 08:01 Albumin 2.7 g/dL (3.9-5) L 03/26/21 08:01 Albumin/Globulin Ratio 0.5 % 03/26/21 08:01 Chin/IV: Voiding Method Urinal Active Medications - Current Medications Current Medications: Generic Name Dose Route Start Last Admin Trade Name Freq PRN Reason Stop Dose Admin Acetaminophen 650 mg 03/25/21 23:25 Acetaminophen 325 Mg Tab PO Q4H PRN Pain MILD(1-3)/Fever >100.5/JULIAN Famotidine 20 mg 03/26/21 10:00 03/26/21 09:05 Famotidine 20 Mg Tab PO Not Given BID LISA Hydromorphone HCl 0.5 mg 03/25/21 23:25 Hydromorphone 1 Mg/1 Ml Inj IV Q3H PRN Pain , Severe (7-10) Ampicillin Sodium/Sulbactam Sodium 3 gm in 100 mls @ 100 mls/hr 03/26/21 00:00 03/26/21 13:44 Unasyn/Ns 3 Gm/100 Ml IV 100 mls/hr Q6HR LISA Administration Protocol Vancomycin HCl 1,750 mg/ 535 mls @ 333.333 mls/hr 03/26/21 18:00 Sodium Chloride IV Q12H [facility] Insulin Human Lispro 0 unit 03/26/21 07:30 03/26/21 13:50 Insulin Lispro 100 Unit/Ml SUB-Q Not Given ACHS [facility] Protocol Metoclopramide HCl 10 mg 03/25/21 23:25 Metoclopramide 10 Mg/2 Ml Inj IV Q6H PRN Nausea And Vomiting Ondansetron HCl 4 mg 03/25/21 23:25 Ondansetron 4 Mg/2 Ml Inj IV Q3H PRN Nausea And Vomiting Oxycodone/Acetaminophen 2 tab 03/25/21 23:25 03/26/21 13:56 Oxycodone /Acetaminophen 5-325mg Tab PO 2 tab Q6H PRN Administration Pain, Moderate (4-6) Sodium Chloride 10 ml 03/26/21 10:00 03/26/21 13:40 Sodium Chloride 0.9% 10 Ml Flush Syringe IV 10 ml BID LISA Administration Sodium Chloride 10 ml 03/25/21 23:25 Sodium Chloride 0.9% 10 Ml Flush Syringe IV PRN PRN LINE FLUSH Nutrition/Malnutrition Assess - Dietary Evaluation Nutrition/Malnutrition Findings: Nutrition Notes Start: 03/26/21 11:10 Freq: Status: Active Protocol: Document 03/26/21 11:11 ZAIN (Rec: 03/26/21 11:16 [email or web address] [id number]) Nutrition Notes Need for 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 Pt reports good appetite and knowledge of food sources of CHO. He says his foot got infected because he underwent 2 previous procedures and was sent home without abx. He says he controls his BS " pretty good". Burn Absent Trauma Absent Current % PO Good (75-100%) Minimum of two criteria No Nutrition Intervention Change Diet Order: Add Consistent CHO modifier to current diet order Revisit per MD consult or patient Sign Off request:
--- NOTE | 2021-03-26 15:30 | Consultation ---
History of Present Illness - Reason for Consult Consult date: 03/26/21 Right foot infection Requesting physician: GUILHERME BORJAS - History of Present Illness 60-year-old -Citizen Of [place] male with history of hypertension, diabetes, peripheral arterial disease comes in for right foot ulcer, swelling and redness for the last 4 days. Patient apparently saw her hand tool filer about 1 to 2 months ago at [facility] in [place] and had a incision and drainage followed by placement of a drain in the right foot dorsal aspect. Patient was placed on antibiotics. Patient was referred to the wound care center and was receiving wound care. Over the past 3 to 4 days patient has been having increasing redness and swelling of the right lower extremity after knee. Patient was referred by Dr. Dixon for emergency room for further care. Patient had first appointment with her in with a poor effort for right [facility] and [place]. Patient has purulent discharge from the right foot ulcer. Patient was also recommended vascular surgery consult at that time. Vascular consulted for vascular evaluation given underlying cellulitis and nonhealing wound. Discussed with Dr. Parry, patient has had I&D x2 of the right dorsum of the foot with recurrence, and Dr. Parry performed a deeper I&D reaching a deeper pocket than previously performed. Patient now has erythema of the right leg and has developed cellulitis. Patient has a palpable right DP and PT, and left PT. Left DP is nonpalpable. Past Medical History Previous Medical History?: Yes Hx Hypertension: Yes Hx Diabetes: Yes Additional medical history: Peripheral vascular disease Surgical History Past Surgical History?: Yes Additional Surgical History: FOOT SURGERY Social History Smoking Status: Current Every Day Smoker Substance Use Type: None Past History Past Medical History: diabetes, hypertension, hyperlipidemia, other (Obesity) Past Surgical History: Other (Right foot I&D) Social history: no significant social history Family history: no significant family history Medications and Allergies Allergies Allergy/AdvReac Type Severity Reaction Status Date / Time No Known Allergies Allergy Verified 03/25/21 13:02 Home Medications Medication Instructions Recorded Confirmed Last Taken Type oxyCODONE /ACETAMINOPHEN [Percocet 1 tab PO Q6HR PRN #20 tablet 03/19/21 Unknown Rx 5/325] Active Meds: Active Medications Acetaminophen (Acetaminophen 325 Mg Tab) 650 mg PO Q4H PRN PRN Reason: Pain MILD(1-3)/Fever >100.5/JULIAN Famotidine (Famotidine 20 Mg Tab) 20 mg PO BID [facility] Last Admin: 03/26/21 09:05 Dose: Not Given Documented by: Hydromorphone HCl (Hydromorphone 1 Mg/1 Ml Inj) 0.5 mg IV Q3H PRN PRN Reason: Pain , Severe (7-10) Ampicillin Sodium/Sulbactam Sodium (Unasyn/Ns 3 Gm/100 Ml) 3 gm in 100 mls @ 100 mls/hr IV Q6HR [facility]; Protocol Last Admin: 03/26/21 13:44 Dose: 100 mls/hr Documented by: Vancomycin HCl 1,750 mg/ (Sodium Chloride) 535 mls @ 333.333 mls/hr IV Q12H [facility] Insulin Human Lispro (Insulin Lispro 100 Unit/Ml) 0 unit SUB-Q ACHS [facility]; Protocol Last Admin: 03/26/21 13:50 Dose: Not Given Documented by: Metoclopramide HCl (Metoclopramide 10 Mg/2 Ml Inj) 10 mg IV Q6H PRN PRN Reason: Nausea And Vomiting Ondansetron HCl (Ondansetron 4 Mg/2 Ml Inj) 4 mg IV Q3H PRN PRN Reason: Nausea And Vomiting Oxycodone/Acetaminophen (Oxycodone /Acetaminophen 5-325mg Tab) 2 tab PO Q6H PRN PRN Reason: Pain, Moderate (4-6) Last Admin: 03/26/21 13:56 Dose: 2 tab Documented by: Sodium Chloride (Sodium Chloride 0.9% 10 Ml Flush Syringe) 10 ml IV BID [facility] Last Admin: 03/26/21 13:40 Dose: 10 ml Documented by: Sodium Chloride (Sodium Chloride 0.9% 10 Ml Flush Syringe) 10 ml IV PRN PRN PRN Reason: LINE FLUSH Review of Systems All systems: negative (see HPI) Exam - Constitutional Vitals: Temp Pulse Resp BP Pulse Ox 98.6 F 98 H 16 147/78 97 03/26/21 07:35 03/26/21 07:35 03/26/21 07:35 03/26/21 07:35 03/26/21 07:35 General appearance: Present: no acute distress - EENT Eyes: Present: EOM intact ENT: hearing intact - Respiratory Respiratory effort: normal - Extremities Extremities: abnormal (Palpable right PT and DP, and palpable left PT. 2+ edema of the right lower extremity with erythema and tenderness to touch.) - Abdominal General gastrointestinal: Present: other (Obese) - Psychiatric Psychiatric: appropriate mood/affect, cooperative Results - Labs CBC & Chem 7: 03/26/21 08:01 03/26/21 08:01 Labs: Abnormal lab results 03/25/21 03/26/21 03/26/21 Range/Units 20:52 07:38 08:01 Hgb 10.7 L (11.8-15.2) gm/dl Hct 32.0 L (35.5-45.6) % RDW 16.1 H (13.2-15.2) % [place] % (Auto) 10.0 H (0.0-7.3) % [place] # (Auto) 1.1 H (0.0-0.8) K/mm3 Seg Neutrophils % 70.4 H (40.0-70.0) % Sodium (137-145) mmol/L Chloride (98-107) mmol/L Glucose (75-100) mg/dL POC Glucose 109 H 121 H (70-105) mg/dL Hemoglobin A1c (4-6) % AST (5-40) units/L Total Protein (6.3-8.2) g/dL Albumin (3.9-5) g/dL 03/26/21 03/26/21 Range/Units 08:01 08:01 Hgb (11.8-15.2) gm/dl Hct (35.5-45.6) % RDW (13.2-15.2) % [place] % (Auto) (0.0-7.3) % [place] # (Auto) (0.0-0.8) K/mm3 Seg Neutrophils % (40.0-70.0) % Sodium 130 L (137-145) mmol/L Chloride 95.3 L (98-107) mmol/L Glucose 124 H (75-100) mg/dL POC Glucose (70-105) mg/dL Hemoglobin A1c 6.7 H (4-6) % AST 44 H (5-40) units/L Total Protein 8.3 H (6.3-8.2) g/dL Albumin 2.7 L (3.9-5) g/dL Assessment and Plan 60-year-old male with diabetes with ulcer of the right dorsum of the foot. Has palpable right PT and DP. Noninvasive ultrasounds demonstrated adequate blood flow to heal. Recommend infectious disease consult for cellulitis. No vascular interventions planned.
--- NOTE | 2021-03-26 16:17 | Consultation ---
History of Present Illness - Reason for Consult Consult date: 03/26/21 osteomyelitis, abscess R foot Requesting physician: JUAN CROCKER - History of Present Illness The patient is a 60-year-old male with morbid obesity, diabetes mellitus type 2, admitted to the hospital yesterday with worsening of his right foot infection. He had initially undergone an abscess drainage outpatient by podiatry about a month ago and was not following up with the wound care clinic. Due to concern for ongoing infection, he underwent an MRI as an outpatient and another I&D to drain an abscess. There were also findings of possible early osteomyelitis. Due to worsening, came to the ER. Is currently afebrile. Labs showed mild leukocytosis on admission. Review of Systems: General: no fevers,chills or rigors HEENT: no new visual disturbance Respiratory: No cough, sputum, hemoptysis or shortness of breath Cardiovascular: No chest pain, syncope Gastrointestinal: No nausea, vomiting or diarrhea Genitourinary: No dysuria or hematuria Musculoskeletal: No new or worsening neck pain or back pain Neurologic: No headaches, seizures Hematologic: No easy bruising or bleeding Endocrine: No night sweats or acute weight loss Skin: negative for rash, jaundice Psychiatric: No suicidal or homicidal ideation Past History Past Medical History: diabetes, hypertension, hyperlipidemia, other (Obesity) Past Surgical History: Other (Right foot I&D) Social history: no significant social history Family history: no significant family history Medications and Allergies Allergies Allergy/AdvReac Type Severity Reaction Status Date / Time No Known Allergies Allergy Verified 03/25/21 13:02 Home Medications Medication Instructions Recorded Confirmed Last Taken Type oxyCODONE /ACETAMINOPHEN [Percocet 1 tab PO Q6HR PRN #20 tablet 03/19/21 Unknown Rx 5/325] Active Meds: Active Medications Acetaminophen (Acetaminophen 325 Mg Tab) 650 mg PO Q4H PRN PRN Reason: Pain MILD(1-3)/Fever >100.5/JULIAN Famotidine (Famotidine 20 Mg Tab) 20 mg PO BID LISA Last Admin: 03/26/21 09:05 Dose: Not Given Documented by: Hydromorphone HCl (Hydromorphone 1 Mg/1 Ml Inj) 0.5 mg IV Q3H PRN PRN Reason: Pain , Severe (7-10) Vancomycin HCl 1,750 mg/ (Sodium Chloride) 535 mls @ 333.333 mls/hr IV Q12H [facility] Insulin Human Lispro (Insulin Lispro 100 Unit/Ml) 0 unit SUB-Q ACHS LISA; Protocol Last Admin: 03/26/21 13:50 Dose: Not Given Documented by: Metoclopramide HCl (Metoclopramide 10 Mg/2 Ml Inj) 10 mg IV Q6H PRN PRN Reason: Nausea And Vomiting Ondansetron HCl (Ondansetron 4 Mg/2 Ml Inj) 4 mg IV Q3H PRN PRN Reason: Nausea And Vomiting Oxycodone/Acetaminophen (Oxycodone /Acetaminophen 5-325mg Tab) 2 tab PO Q6H PRN PRN Reason: Pain, Moderate (4-6) Last Admin: 03/26/21 13:56 Dose: 2 tab Documented by: Sodium Chloride (Sodium Chloride 0.9% 10 Ml Flush Syringe) 10 ml IV BID [facility] Last Admin: 03/26/21 13:40 Dose: 10 ml Documented by: Sodium Chloride (Sodium Chloride 0.9% 10 Ml Flush Syringe) 10 ml IV PRN PRN PRN Reason: LINE FLUSH Physical Examination - Physical Exam Narrative exam: Physical Exam: Constitutional: Alert, cooperative. No acute distress Head, Ears, Nose: Normocephalic, atraumatic. External ears, nose normal Eyes: Conjunctivae/corneas clear. No icterus. No ptosis. Neck: Supple, no meningeal signs Cardiovascular: S1, S2 normal. Respiratory: Good air entry, clear to auscultation bilaterally GI: Soft, non-tender; bowel sounds normal. No peritoneal signs Musculoskeletal: Right foot dorsum with wound with packing. Skin: No rash or abscess Hem/Lymphatic: No palpable cervical or supraclavicular nodes. No lymphangitis Psych: Mood ok. Affect normal Neurological: Awake, alert, oriented. No gross abnormality - Constitutional Vitals: Vital Signs Temp Pulse Resp BP Pulse Ox 98.6 F 98 H 16 147/78 97 03/26/21 07:35 03/26/21 07:35 03/26/21 07:35 03/26/21 07:35 03/26/21 07:35 Temperature -Last 24 Hours Temperature 98.6 F Temperature 98.3 F Temperature 99.4 F Temperature 98.9 F Temperature 98.0 F Results - Labs CBC & Chem 7: 03/26/21 08:01 03/26/21 08:01 Labs: Abnormal lab results 03/25/21 03/26/21 03/26/21 Range/Units 20:52 07:38 08:01 Hgb 10.7 L (11.8-15.2) gm/dl Hct 32.0 L (35.5-45.6) % RDW 16.1 H (13.2-15.2) % [place] % (Auto) 10.0 H (0.0-7.3) % [place] # (Auto) 1.1 H (0.0-0.8) K/mm3 Seg Neutrophils % 70.4 H (40.0-70.0) % Sodium (137-145) mmol/L Chloride (98-107) mmol/L Glucose (75-100) mg/dL POC Glucose 109 H 121 H (70-105) mg/dL Hemoglobin A1c (4-6) % AST (5-40) units/L Total Protein (6.3-8.2) g/dL Albumin (3.9-5) g/dL 03/26/21 03/26/21 Range/Units 08:01 08:01 Hgb (11.8-15.2) gm/dl Hct (35.5-45.6) % RDW (13.2-15.2) % [place] % (Auto) (0.0-7.3) % [place] # (Auto) (0.0-0.8) K/mm3 Seg Neutrophils % (40.0-70.0) % Sodium 130 L (137-145) mmol/L Chloride 95.3 L (98-107) mmol/L Glucose 124 H (75-100) mg/dL POC Glucose (70-105) mg/dL Hemoglobin A1c 6.7 H (4-6) % AST 44 H (5-40) units/L Total Protein 8.3 H (6.3-8.2) g/dL Albumin 2.7 L (3.9-5) g/dL Assessment and Plan Cultures: None available A/P: 60-year-old male with morbid obesity, diabetes mellitus type 2: #Right foot diabetic infection, cellulitis, recent abscess and MRI with evidence of osteomyelitis: Status post I&D more than a month ago by podiatry, more recently I&D at the wound care center. No vascular disease noted. #Diabetes mellitus type 2: Maintain glycemic control Recs: -Discussed with Dr. Crocker, follow-up outpatient cultures -Empiric ceftriaxone, vancomycin for now -anticipate PICC line and IV abx upon discharge Tahir Redmond MD, FACP [facility] ([facility] O: [phone] F: [phone]
[2021-03-26] MEDS: VANCOMYCIN 1,750 MG in SODIUM CHLORIDE 0.9% 500 ML 500 ML IV SCH (17:23)
[2021-03-26] MEDS: cefTRIAXone/NS 2 GM/100 ML 2 GM/100 ML BAG IV SCH (19:49)
[2021-03-27] MEDS: VANCOMYCIN 1,750 MG in SODIUM CHLORIDE 0.9% 500 ML 500 ML IV SCH ×2 (05:22→18:20)
[2021-03-27] MEDS: ACETAMINOPHEN 325 MG TAB PO PRN ×2 (05:22→21:42)
[2021-03-27 05:54] LABS: BUN/Creatinine Ratio 10; Blood Urea Nitrogen 10 mg/dL (9-20); Calcium 9.1 mg/dL (8.4-10.2); Hemolysis Index 2
[2021-03-27] MEDS: INSULIN LISPRO 100 UNIT/ML SUB-Q SCH ×4 (08:57→21:12)
[2021-03-27] MEDS: oxyCODONE /ACETAMINOPHEN 5-325MG TAB PO PRN ×2 (08:58→21:11)
[2021-03-27] MEDS: FAMOTIDINE 20 MG TAB PO SCH ×2 (11:16→21:12)
--- NOTE | 2021-03-27 11:55 | Event Note ---
Date: 03/27/21 Patient chart reviewed. Afebrile. BP and HR stable. WBC normal. 1. Outpatient wound cultures were not sent from I&D on 03/18/21 - will order wound cultures to be obtained today 2. Dressing changes daily 3. continue abx per ID - anticipated dc with IV abx per notes 4. outpatient MRI report to be scanned into system 5. prn pain control 6. Discussed with implant polisher who will see patient tomorrow
--- NOTE | 2021-03-27 12:57 | Progress Note ---
Assessment and Plan Cultures: None yet A/P: 60-year-old male with morbid obesity, diabetes mellitus type 2: #Right foot diabetic infection, cellulitis, recent abscess and MRI with evidence of osteomyelitis: Status post I&D more than a month ago by podiatry, more recently I&D at the wound care center. No vascular disease noted. Cellulitis is not much improved. #Diabetes mellitus type 2: Maintain glycemic control Recs: -Discussed with Dr. Parry, getting wound culture -continue ceftriaxone, vancomycin for now -anticipate PICC line and IV abx upon discharge -limb elevation Tahir Redmond MD, FACP [facility] ([facility] O: [phone] F: [phone] Subjective Date of service: 03/27/21 Interval history: No fever. Not much improvement in RLE. No pain. Objective - Exam Narrative Exam: Physical Exam: Constitutional: Alert, cooperative. No acute distress Head, Ears, Nose: Normocephalic, atraumatic. External ears, nose normal Eyes: Conjunctivae/corneas clear. No icterus. No ptosis. Neck: Supple, no meningeal signs Cardiovascular: S1, S2 normal. Respiratory: Good air entry, clear to auscultation bilaterally GI: Soft, non-tender; bowel sounds normal. No peritoneal signs Musculoskeletal: Right foot dorsum with wound with packing. RLE swelling, redness, warmth and tenderness + Skin: No rash or abscess Hem/Lymphatic: No palpable cervical or supraclavicular nodes. No lymphangitis Psych: Mood ok. Affect normal Neurological: Awake, alert, oriented. No gross abnormality - Constitutional Vitals: Vital Signs Temp Pulse Resp BP Pulse Ox 98.8 F 91 H 18 145/78 96 03/27/21 11:49 03/27/21 11:49 03/27/21 11:49 03/27/21 11:49 03/27/21 11:49 Temperature -Last 24 Hours Temperature 98.8 F Temperature 97.9 F Temperature 99.0 F Temperature 98.5 F Temperature 98.8 F Temperature 98.3 F - Labs CBC & Chem 7: 03/26/21 08:01 03/27/21 04:34 Labs: Abnormal lab results 03/26/21 03/26/21 03/27/21 Range/Units 16:07 21:54 04:34 Chloride 97.1 L (98-107) mmol/L Glucose 119 H (75-100) mg/dL POC Glucose 128 H 144 H (70-105) mg/dL 03/27/21 Range/Units 07:52 Chloride (98-107) mmol/L Glucose (75-100) mg/dL POC Glucose 131 H (70-105) mg/dL
[2021-03-27] MEDS: cefTRIAXone/NS 2 GM/100 ML 2 GM/100 ML BAG IV SCH (17:40)
--- NOTE | 2021-03-27 18:21 | Progress Note ---
Assessment and Plan Assessment and plan: --SIRS (systemic inflammatory response syndrome) Current Visit: Yes Status: Acute Patient has leukocytosis and tachycardia secondary to right lower extremity cellulitis and right foot abscess --Diabetic wound/ of right lower extremity Current Visit: Yes Status: Acute Patient initiated on IV antibiotics in the form of Unasyn and vancomycin Wound cultures, Surgery evaluation noted and appreciated Check MRI right foot to rule out osteomyelitis ID consult, surgery evaluation noted and appreciated --Right foot osteomyelitis; Continue Rocephin and vancomycin per ID Follow wound cultures, may need PICC placement Patient long-term IV antibiotics, Will follow ID/surgery recommendations -- Hypertension Current Visit: Yes Status: Chronic : Continue antihypertensives and adjust medications as necessary. --Hyponatremia; Normal saline, monitor electrolytes --Severe protein calorie malnutrition; Hypoalbuminemia nutrition supplements. Nutrition consul --Type 2 diabetes mellitus /A1c 6.7 Current Visit: Yes Status: Chronic t Patient's blood sugars are well controlled Blood sugars less than 200, A1c 6.7 Patient is on high doses of 3 oral hypoglycemics Hold right now, and resume as needed Continue sliding scale coverage --Peripheral arterial disease Current Visit: Yes Status: Chronic Duplex scan of right lower extremity Vascular surgery consult --DVT prophylaxis Current Visit: Yes Status: Acute On heparin and GI prophylaxis Advance Directives: Yes (Full code) VTE prophylaxis?: Chemical Plan of care discussed with patient/family: Yes Closely monitor the patient and adjust management as needed Plan of care reviewed with the patient and his nurse Sales Promoter recommendations noted and appreciated 03/27/2021; osteomyelitis right foot, on Rocephin and Vanco ID considering long-term antibiotics and PICC placement Patient's blood sugars are reasonable level, did not need oral hypoglycemics Discussed with patient in detail that we will resume his home diabetic medications Once his blood sugars are high, patient verbalized understanding History Interval history: I have seen and examined the patient at the bedside this afternoon Patient's chart and medications reviewed Patient feels slightly better Has osteomyelitis of the right foot, on IV antibiotics Patient is concerned about his home medication I reviewed the home medications and explained to him That his blood sugars are ranging below 200, and did not require Multiple oral hypoglycemics. Vital signs stable Hospitalist Physical - Constitutional Vitals: Temp Pulse Resp BP Pulse Ox 98.8 F 91 H 18 145/78 96 03/27/21 11:49 03/27/21 11:49 03/27/21 11:49 03/27/21 11:49 03/27/21 11:49 General appearance: Present: no acute distress, well-nourished, obese (Morbidly obese) - EENT Eyes: Present: PERRL, EOM intact - Neck Neck: Present: supple, normal ROM - Respiratory Respiratory effort: normal Respiratory: bilateral: diminished, negative: rales, rhonchi, wheezing - Cardiovascular Rhythm: regular Heart Sounds: Present: S1 & S2 - Extremities Extremities: no ischemia, abnormal (Right foot osteomyelitis/dressing in place) - Abdominal General gastrointestinal: soft, non-tender, non-distended, normal bowel sounds - Integumentary Integumentary: Present: clear, warm - Psychiatric Psychiatric: appropriate mood/affect, cooperative - Neurologic Neurologic: CNII-XII intact, moves all extremities Results - Labs CBC & Chem 7: 03/26/21 08:01 03/27/21 04:34 Labs: Laboratory Last Values WBC 10.5 K/mm3 (4.5-11.0) 03/26/21 08:01 RBC 3.80 M/mm3 (3.65-5.03) 03/26/21 08:01 Hgb 10.7 gm/dl (11.8-15.2) L 03/26/21 08:01 Hct 32.0 % (35.5-45.6) L 03/26/21 08:01 MCV 84 fl (84-94) 03/26/21 08:01 MCH 28 pg (28-32) 03/26/21 08:01 MCHC 33 % (32-34) 03/26/21 08:01 RDW 16.1 % (13.2-15.2) H 03/26/21 08:01 Plt Count 356 K/mm3 (140-440) 03/26/21 08:01 Lymph % (Auto) 18.8 % (13.4-35.0) 03/26/21 08:01 [place] % (Auto) 10.0 % (0.0-7.3) H 03/26/21 08:01 Eos % (Auto) 0.5 % (0.0-4.3) 03/26/21 08:01 Baso % (Auto) 0.3 % (0.0-1.8) 03/26/21 08:01 Lymph # (Auto) 2.0 K/mm3 (1.2-5.4) 03/26/21 08:01 [place] # (Auto) 1.1 K/mm3 (0.0-0.8) H 03/26/21 08:01 Eos # (Auto) 0.0 K/mm3 (0.0-0.4) 03/26/21 08:01 Baso # (Auto) 0.0 K/mm3 (0.0-0.1) 03/26/21 08:01 Seg Neutrophils % 70.4 % (40.0-70.0) H 03/26/21 08:01 Seg Neutrophils # 7.4 K/mm3 (1.8-7.7) 03/26/21 08:01 Sodium 137 mmol/L (137-145) D 03/27/21 04:34 Potassium 3.8 mmol/L (3.6-5.0) 03/27/21 04:34 Chloride 97.1 mmol/L (98-107) L 03/27/21 04:34 Carbon Dioxide 26 mmol/L (22-30) 03/27/21 04:34 Anion Gap 18 mmol/L 03/27/21 04:34 BUN 10 mg/dL (9-20) 03/27/21 04:34 Creatinine 1.0 mg/dL (0.8-1.3) 03/27/21 04:34 Estimated GFR > 60 ml/min 03/27/21 04:34 BUN/Creatinine Ratio 10 % 03/27/21 04:34 Glucose 119 mg/dL (75-100) H 03/27/21 04:34 POC Glucose 161 mg/dL (70-105) H 03/27/21 11:49 Hemoglobin A1c 6.7 % (4-6) H 03/26/21 08:01 Lactic Acid 2.00 mmol/L (0.7-2.0) 03/25/21 13:54 Calcium 9.1 mg/dL (8.4-10.2) 03/27/21 04:34 Total Bilirubin 1.20 mg/dL (0.1-1.2) 03/26/21 08:01 AST 44 units/L (5-40) H 03/26/21 08:01 ALT 24 units/L (7-56) 03/26/21 08:01 Alkaline Phosphatase 97 units/L (35-129) 03/26/21 08:01 Total Protein 8.3 g/dL (6.3-8.2) H 03/26/21 08:01 Albumin 2.7 g/dL (3.9-5) L 03/26/21 08:01 Albumin/Globulin Ratio 0.5 % 03/26/21 08:01 Chin/IV: Voiding Method Urinal Active Medications - Current Medications Current Medications: Generic Name Dose Route Start Last Admin Trade Name Freq PRN Reason Stop Dose Admin Acetaminophen 650 mg 03/25/21 23:25 03/27/21 05:22 Acetaminophen 325 Mg Tab PO 650 mg Q4H PRN Administration Pain MILD(1-3)/Fever >100.5/JULIAN Famotidine 20 mg 03/26/21 10:00 03/27/21 11:16 Famotidine 20 Mg Tab PO 20 mg BID LISA Administration Furosemide 40 mg 03/28/21 10:00 Furosemide 40 Mg Tab PO DAILY LISA Hydromorphone HCl 0.5 mg 03/25/21 23:25 Hydromorphone 1 Mg/1 Ml Inj IV Q3H PRN Pain , Severe (7-10) Vancomycin HCl 1,750 mg/ 535 mls @ 333.333 mls/hr 03/26/21 18:00 03/27/21 18:20 Sodium Chloride IV 333.333 mls/hr Q12H LISA Administration Ceftriaxone Sodium 2 gm in 100 mls @ 200 mls/hr 03/26/21 18:00 03/27/21 17:40 Rocephin/Ns 2 Gm/100 Ml IV 200 mls/hr Q24H LISA Administration Protocol Insulin Human Lispro 0 unit 03/26/21 07:30 03/27/21 16:49 Insulin Lispro 100 Unit/Ml SUB-Q 3 unit ACHS LISA Administration Protocol Metoclopramide HCl 10 mg 03/25/21 23:25 Metoclopramide 10 Mg/2 Ml Inj IV Q6H PRN Nausea And Vomiting Miscellaneous Medication 90 mg 03/28/21 10:00 Nifedipine [Nifedipine] PO DAILY LISA Ondansetron HCl 4 mg 03/25/21 23:25 Ondansetron 4 Mg/2 Ml Inj IV Q3H PRN Nausea And Vomiting Oxycodone/Acetaminophen 2 tab 03/25/21 23:25 03/27/21 08:58 Oxycodone /Acetaminophen 5-325mg Tab PO 2 tab Q6H PRN Administration Pain, Moderate (4-6) Sodium Chloride 10 ml 03/26/21 10:00 03/27/21 11:17 Sodium Chloride 0.9% 10 Ml Flush Syringe IV 10 ml BID LISA Administration Sodium Chloride 10 ml 03/25/21 23:25 Sodium Chloride 0.9% 10 Ml Flush Syringe IV PRN PRN LINE FLUSH Nutrition/Malnutrition Assess - Dietary Evaluation Nutrition/Malnutrition Findings: Nutrition Notes Start: 03/26/21 11:10 Freq: Status: Active Protocol: Document 03/26/21 11:11 ZAIN (Rec: 03/26/21 11:16 [email or web address] [id number]) Nutrition Notes Need for Assessment generated from: extension professor Initial or Follow up Brief Note Current Diagnosis Diabetes,Hypertension Other Pertinent Diagnosis (R) foot ulcer, RLE cellulitis , SIRS, peripheral artery dz Current Diet Cardiac Labs/Tests A1C 6.7 Pertinent Medications Reviewed Height 6 ft Weight 135.5 kg [place] Body Weight (kg) 80.90 BMI 40.5 Intake Prior to Admission Good Weight Status Morbidly Obese Subjective/Other Information Pt screened for skin risk and new onset of DM, however, pt reports being diabetic for 20 yrs. Pt reports good appetite and knowledge of food sources of CHO. He says his foot got infected because he underwent 2 previous procedures and was sent home without abx. He says he controls his BS " pretty good". Burn Absent Trauma Absent Current % PO Good (75-100%) Minimum of two criteria No Nutrition Intervention Change Diet Order: Add Consistent CHO modifier to current diet order Revisit per MD consult or patient Sign Off request:
[2021-03-28] MEDS: VANCOMYCIN 1,750 MG in SODIUM CHLORIDE 0.9% 500 ML 500 ML IV SCH ×2 (06:57→18:20)
[2021-03-28] MEDS: oxyCODONE /ACETAMINOPHEN 5-325MG TAB PO PRN ×2 (08:23→18:15)
[2021-03-28] MEDS: INSULIN LISPRO 100 UNIT/ML SUB-Q SCH ×4 (08:53→23:01)
[2021-03-28] MEDS ORDERED: NIFEDIPINE 20 MG PO SCH (10:00)
[2021-03-28] MEDS: FUROSEMIDE 40 MG TAB PO SCH (11:23)
[2021-03-28] MEDS: FAMOTIDINE 20 MG TAB PO SCH ×2 (11:23→21:26)
[2021-03-28] MEDS: NIFEdipine XL 90 MG TAB PO SCH (11:24)
--- NOTE | 2021-03-28 11:51 | Progress Note ---
Assessment and Plan Cultures: Wound culture: in process. A/P: 60-year-old male with morbid obesity, diabetes mellitus type 2: #Right foot diabetic infection, cellulitis, recent abscess and MRI with evidence of osteomyelitis: Status post I&D more than a month ago by podiatry, more recently I&D at the wound care center. No vascular disease noted. Cellulitis is not much improved. #Diabetes mellitus type 2: Maintain glycemic control Recs: -f/u wound culture -continue ceftriaxone, vancomycin for now -anticipate PICC line and IV abx upon discharge -limb elevation Tahri Redmond MD, FACP [facility] O: [phone] F: [phone] Subjective Date of service: 03/28/21 Interval history: No fever. Swelling in RLE is improving. Pain also getting better. Objective - Exam Narrative Exam: Physical Exam: Constitutional: Alert, cooperative. No acute distress Head, Ears, Nose: Normocephalic, atraumatic. External ears, nose normal Eyes: Conjunctivae/corneas clear. No icterus. No ptosis. Neck: Supple, no meningeal signs Cardiovascular: S1, S2 normal. Respiratory: Good air entry, clear to auscultation bilaterally GI: Soft, non-tender; bowel sounds normal. No peritoneal signs Musculoskeletal: Right foot dorsum with wound with packing. RLE swelling, redness, warmth and tenderness + Skin: No rash or abscess Hem/Lymphatic: No palpable cervical or supraclavicular nodes. No lymphangitis Psych: Mood ok. Affect normal Neurological: Awake, alert, oriented. No gross abnormality - Constitutional Vitals: Vital Signs Temp Pulse Resp BP Pulse Ox 98.3 F 75 18 131/68 97 03/28/21 11:29 03/28/21 11:29 03/28/21 11:29 03/28/21 11:29 03/28/21 11:29 Temperature -Last 24 Hours Temperature 98.3 F Temperature 98.4 F Temperature 98.6 F Temperature 98.8 F Temperature 100.6 F - Labs CBC & Chem 7: 03/26/21 08:01 03/27/21 04:34 Labs: Abnormal lab results 03/27/21 03/27/21 03/27/21 Range/Units 11:49 16:13 20:58 POC Glucose 161 H 181 H 134 H (70-105) mg/dL 03/28/21 Range/Units 07:39 POC Glucose 155 H (70-105) mg/dL
--- NOTE | 2021-03-28 14:47 | Progress Note ---
Assessment and Plan Assessment and plan: --SIRS (systemic inflammatory response syndrome) Current Visit: Yes Status: Acute Patient has leukocytosis and tachycardia secondary to right lower extremity cellulitis and right foot abscess --Diabetic wound/ of right lower extremity Current Visit: Yes Status: Acute Patient initiated on IV antibiotics in the form of Unasyn and vancomycin Wound cultures, Surgery evaluation noted and appreciated Check MRI right foot to rule out osteomyelitis ID consult, surgery evaluation noted and appreciated --Right foot osteomyelitis; Continue Rocephin and vancomycin per ID Follow wound cultures, may need PICC placement Patient long-term IV antibiotics, Will follow ID/surgery recommendations -- Hypertension Current Visit: Yes Status: Chronic : Continue antihypertensives and adjust medications as necessary. --Hyponatremia; Normal saline, monitor electrolytes --Severe protein calorie malnutrition; Hypoalbuminemia nutrition supplements. Nutrition consul --Type 2 diabetes mellitus /A1c 6.7 Current Visit: Yes Status: Chronic t Patient's blood sugars are well controlled Blood sugars less than 200, A1c 6.7 Patient is on high doses of 3 oral hypoglycemics Hold right now, and resume as needed Continue sliding scale coverage --Peripheral arterial disease Current Visit: Yes Status: Chronic Duplex scan of right lower extremity Vascular surgery consult --DVT prophylaxis Current Visit: Yes Status: Acute On heparin and GI prophylaxis Advance Directives: Yes (Full code) VTE prophylaxis?: Chemical Plan of care discussed with patient/family: Yes Closely monitor the patient and adjust management as needed Plan of care reviewed with the patient and his nurse Payloader Operator recommendations noted and appreciated 03/27/2021; osteomyelitis right foot, on Rocephin and Vanco ID considering long-term antibiotics and PICC placement Patient's blood sugars are reasonable level, did not need oral hypoglycemics Discussed with patient in detail that we will resume his home diabetic medications Once his blood sugars are high, patient verbalized understanding 03/28/2021; continue current antibiotics Elevate the limb, supportive care History Interval history: I have seen and examined the patient at the bedside Patient's chart and medications reviewed No new complaints Vital signs noted Hospitalist Physical - Constitutional Vitals: Temp Pulse Resp BP Pulse Ox 98.3 F 75 18 131/68 97 03/28/21 11:29 03/28/21 11:29 03/28/21 11:29 03/28/21 11:29 03/28/21 11:29 General appearance: Present: no acute distress, well-nourished, obese (Morbidly obese) - EENT Eyes: Present: PERRL, EOM intact - Neck Neck: Present: supple, normal ROM - Respiratory Respiratory effort: normal Respiratory: bilateral: diminished, negative: rales, rhonchi, wheezing - Cardiovascular Rhythm: regular Heart Sounds: Present: S1 & S2 - Extremities Extremities: abnormal (Right foot in dressing osteomyelitis) Extremity abnormal: edema - Abdominal General gastrointestinal: soft, non-tender, non-distended, normal bowel sounds - Integumentary Integumentary: Present: clear, warm - Psychiatric Psychiatric: appropriate mood/affect, cooperative - Neurologic Neurologic: CNII-XII intact, moves all extremities Results - Labs CBC & Chem 7: 03/26/21 08:01 03/27/21 04:34 Labs: Laboratory Last Values WBC 10.5 K/mm3 (4.5-11.0) 03/26/21 08:01 RBC 3.80 M/mm3 (3.65-5.03) 03/26/21 08:01 Hgb 10.7 gm/dl (11.8-15.2) L 03/26/21 08:01 Hct 32.0 % (35.5-45.6) L 03/26/21 08:01 MCV 84 fl (84-94) 03/26/21 08:01 MCH 28 pg (28-32) 03/26/21 08:01 MCHC 33 % (32-34) 03/26/21 08:01 RDW 16.1 % (13.2-15.2) H 03/26/21 08:01 Plt Count 356 K/mm3 (140-440) 03/26/21 08:01 Lymph % (Auto) 18.8 % (13.4-35.0) 03/26/21 08:01 [place] % (Auto) 10.0 % (0.0-7.3) H 03/26/21 08:01 Eos % (Auto) 0.5 % (0.0-4.3) 03/26/21 08:01 Baso % (Auto) 0.3 % (0.0-1.8) 03/26/21 08:01 Lymph # (Auto) 2.0 K/mm3 (1.2-5.4) 03/26/21 08:01 [place] # (Auto) 1.1 K/mm3 (0.0-0.8) H 03/26/21 08:01 Eos # (Auto) 0.0 K/mm3 (0.0-0.4) 03/26/21 08:01 Baso # (Auto) 0.0 K/mm3 (0.0-0.1) 03/26/21 08:01 Seg Neutrophils % 70.4 % (40.0-70.0) H 03/26/21 08:01 Seg Neutrophils # 7.4 K/mm3 (1.8-7.7) 03/26/21 08:01 Sodium 137 mmol/L (137-145) D 03/27/21 04:34 Potassium 3.8 mmol/L (3.6-5.0) 03/27/21 04:34 Chloride 97.1 mmol/L (98-107) L 03/27/21 04:34 Carbon Dioxide 26 mmol/L (22-30) 03/27/21 04:34 Anion Gap 18 mmol/L 03/27/21 04:34 BUN 10 mg/dL (9-20) 03/27/21 04:34 Creatinine 1.0 mg/dL (0.8-1.3) 03/27/21 04:34 Estimated GFR > 60 ml/min 03/27/21 04:34 BUN/Creatinine Ratio 10 % 03/27/21 04:34 Glucose 119 mg/dL (75-100) H 03/27/21 04:34 POC Glucose 167 mg/dL (70-105) H 03/28/21 11:29 Hemoglobin A1c 6.7 % (4-6) H 03/26/21 08:01 Lactic Acid 2.00 mmol/L (0.7-2.0) 03/25/21 13:54 Calcium 9.1 mg/dL (8.4-10.2) 03/27/21 04:34 Total Bilirubin 1.20 mg/dL (0.1-1.2) 03/26/21 08:01 AST 44 units/L (5-40) H 03/26/21 08:01 ALT 24 units/L (7-56) 03/26/21 08:01 Alkaline Phosphatase 97 units/L (35-129) 03/26/21 08:01 Total Protein 8.3 g/dL (6.3-8.2) H 03/26/21 08:01 Albumin 2.7 g/dL (3.9-5) L 03/26/21 08:01 Albumin/Globulin Ratio 0.5 % 03/26/21 08:01 Vancomycin Trough 13.8 ug/mL (5.0-20.0) 03/28/21 05:47 Chin/IV: Voiding Method Urinal Active Medications - Current Medications Current Medications: Generic Name Dose Route Start Last Admin Trade Name Freq PRN Reason Stop Dose Admin Acetaminophen 650 mg 03/25/21 23:25 03/27/21 21:42 Acetaminophen 325 Mg Tab PO 650 mg Q4H PRN Administration Pain MILD(1-3)/Fever >100.5/JULIAN Famotidine 20 mg 03/26/21 10:00 03/28/21 11:23 Famotidine 20 Mg Tab PO 20 mg BID LISA Administration Furosemide 40 mg 03/28/21 10:00 03/28/21 11:23 Furosemide 40 Mg Tab PO 40 mg DAILY LISA Administration Hydromorphone HCl 0.5 mg 03/25/21 23:25 Hydromorphone 1 Mg/1 Ml Inj IV Q3H PRN Pain , Severe (7-10) Vancomycin HCl 1,750 mg/ 535 mls @ 333.333 mls/hr 03/26/21 18:00 03/28/21 06:57 Sodium Chloride IV 333.333 mls/hr Q12H LISA Administration Ceftriaxone Sodium 2 gm in 100 mls @ 200 mls/hr 03/26/21 18:00 03/27/21 20:56 Rocephin/Ns 2 Gm/100 Ml IV Infused Q24H ILSA Infusion Protocol Insulin Human Lispro 0 unit 03/26/21 07:30 03/27/21 21:12 Insulin Lispro 100 Unit/Ml SUB-Q Not Given ACHS LISA Protocol Metoclopramide HCl 10 mg 03/25/21 23:25 Metoclopramide 10 Mg/2 Ml Inj IV Q6H PRN Nausea And Vomiting Nifedipine 90 mg 03/28/21 10:00 03/28/21 11:24 Nifedipine Xl 90 Mg Tab PO 90 mg QDAY LISA Administration Ondansetron HCl 4 mg 03/25/21 23:25 Ondansetron 4 Mg/2 Ml Inj IV Q3H PRN Nausea And Vomiting Oxycodone/Acetaminophen 2 tab 03/25/21 23:25 03/28/21 08:23 Oxycodone /Acetaminophen 5-325mg Tab PO 2 tab Q6H PRN Administration Pain, Moderate (4-6) Sodium Chloride 10 ml 03/26/21 10:00 03/28/21 11:27 Sodium Chloride 0.9% 10 Ml Flush Syringe IV 10 ml BID LISA Administration Sodium Chloride 10 ml 03/25/21 23:25 Sodium Chloride 0.9% 10 Ml Flush Syringe IV PRN PRN LINE FLUSH Nutrition/Malnutrition Assess - Dietary Evaluation Nutrition/Malnutrition Findings: Nutrition Notes Start: 03/26/21 11:10 Freq: Status: Active Protocol: Document 03/26/21 11:11 ZAIN (Rec: 03/26/21 11:16 ZAIN [id number]) Nutrition Notes Need for Assessment generated from: sensitometrist Initial or Follow up Brief Note Current Diagnosis Diabetes,Hypertension Other Pertinent Diagnosis (R) foot ulcer, RLE cellulitis , SIRS, peripheral artery dz Current Diet Cardiac Labs/Tests A1C 6.7 Pertinent Medications Reviewed Height 6 ft Weight 135.5 kg [place] Body Weight (kg) 80.90 BMI 40.5 Intake Prior to Admission Good Weight Status Morbidly Obese Subjective/Other Information Pt screened for skin risk and new onset of DM, however, pt reports being diabetic for 20 yrs. Pt reports good appetite and knowledge of food sources of CHO. He says his foot got infected because he underwent 2 previous procedures and was sent home without abx. He says he controls his BS " pretty good". Burn Absent Trauma Absent Current % PO Good (75-100%) Minimum of two criteria No Nutrition Intervention Change Diet Order: Add Consistent CHO modifier to current diet order Revisit per MD consult or patient Sign Off request:
--- NOTE | 2021-03-28 15:32 | Progress Note ---
Assessment and Plan 60-year-old male with diabetic right foot wound and right lower extremity cellulitis, osteomyelitis Xray right foot - "Markedly abnormal soft tissues of the foot, recommend MR to exclude osteomyelitis." Venous duplex LE - no DVT Arterial u/s LE - "No sonographic evidence of hemodynamically significant lower extremity peripheral arterial disease." Plan: 1. Diabetic diet. HbA1C is 6.7 2. Strict glucose control 3. prn pain control 4. abx per ID - Patient had recent outpatient MRI R foot with evidence of early osteomyelitis. 5. follow up wound cultures 6. continue wound care - packing wound with mesalt daily. 7. elevate RLE Thank you, please call with questions. Subjective Date of service: 03/28/21 Narrative: Pt seen and examined. Tm 100.6 with no additional fevers. Patient states RLE pain is much improved. He also feels swelling is better. Objective Vital Signs - 12hr 03/28/21 03/28/21 03/28/21 04:33 07:40 11:29 Temperature 98.6 F 98.4 F 98.3 F Pulse Rate 76 79 75 Respiratory 18 18 18 Rate Blood Pressure 144/58 131/68 Blood Pressure 151/71 [Left] O2 Sat by Pulse 96 94 97 Oximetry - General physical appearance Narrative Exam: Gen.: Awake, alert, oriented x3. No apparent distress ENT: Trachea midline. No lymphadenopathy. No scleral icterus or conjunctival pallor CV: S1, S2 present Respiratory: No audible wheezes Extremities: Right lower extremity with 2+ pitting edema of the lower leg. Edema of foot is much improved. There is cellulitis present involving the anterior lower leg which is mildly improved. The wound is clean and dry without drainage or odor. Wound bed is red with minimal biofilm. Wound packed with mesalt. There is mild tenderness to palpation of the anterior lower leg which is significantly improved since last exam. There is no tenderness of the calf area. There is no edema, erythema of the left leg. - Labs 03/26/21 08:01 03/27/21 04:34
[2021-03-28] MEDS: cefTRIAXone/NS 2 GM/100 ML 2 GM/100 ML BAG IV SCH (17:45)
[2021-03-29] MEDS: VANCOMYCIN 1,750 MG in SODIUM CHLORIDE 0.9% 500 ML 500 ML IV SCH ×2 (05:01→18:00)
[2021-03-29] MEDS: oxyCODONE /ACETAMINOPHEN 5-325MG TAB PO PRN ×2 (05:09→19:27)
[2021-03-29] MEDS: ACETAMINOPHEN 325 MG TAB PO PRN (05:10)
[2021-03-29] MEDS: INSULIN LISPRO 100 UNIT/ML SUB-Q SCH ×4 (08:40→21:26)
[2021-03-29] MEDS: NIFEdipine XL 90 MG TAB PO SCH ×2 (08:41→10:00)
[2021-03-29] MEDS: FUROSEMIDE 40 MG TAB PO SCH ×2 (08:41→10:00)
[2021-03-29] MEDS: FAMOTIDINE 20 MG TAB PO SCH ×3 (08:41→21:24)
--- NOTE | 2021-03-29 12:03 | Progress Note ---
Assessment and Plan Assessment and plan: --SIRS (systemic inflammatory response syndrome) Current Visit: Yes Status: Acute Patient has leukocytosis and tachycardia secondary to right lower extremity cellulitis and right foot abscess --Diabetic wound/ of right lower extremity Current Visit: Yes Status: Acute Patient initiated on IV antibiotics in the form of Unasyn and vancomycin Wound cultures, Surgery evaluation noted and appreciated Check MRI right foot to rule out osteomyelitis ID consult, surgery evaluation noted and appreciated --Right foot osteomyelitis; Continue Rocephin and vancomycin per ID Follow wound cultures, PICC line requested Patient long-term IV antibiotics, -IV ceftriaxone 2 g daily plus IV vancomycin 1250 mg every 12 hours for 6 weeks ending 05/03/2021 -PICC line requested, CM orders placed DC planning per case management Patient will be discharged when long-term antibiotics are set up And if patient is stable -- Hypertension Current Visit: Yes Status: Chronic : Continue antihypertensives and adjust medications as necessary. --Hyponatremia; resolved Normal saline, monitor electrolytes --Severe protein calorie malnutrition; Hypoalbuminemia nutrition supplements. Nutrition consul --Type 2 diabetes mellitus /A1c 6.7 Current Visit: Yes Status: Chronic t Patient's blood sugars are well controlled Blood sugars less than 200, A1c 6.7 Patient is on high doses of 3 oral hypoglycemics Hold right now, and resume as needed Continue sliding scale coverage --Peripheral arterial disease Current Visit: Yes Status: Chronic Duplex scan of right lower extremity Vascular surgery consult --DVT prophylaxis Current Visit: Yes Status: Acute On heparin and GI prophylaxis Advance Directives: Yes (Full code) VTE prophylaxis?: Chemical Plan of care discussed with patient/family: Yes Closely monitor the patient and adjust management as needed Plan of care reviewed with the patient and his nurse Manufacturing Engineer Paint recommendations noted and appreciated 03/27/2021; osteomyelitis right foot, on Rocephin and Vanco ID considering long-term antibiotics and PICC placement Patient's blood sugars are reasonable level, did not need oral hypoglycemics Discussed with patient in detail that we will resume his home diabetic medications Once his blood sugars are high, patient verbalized understanding 03/28/2021; continue current antibiotics Elevate the limb, supportive care 03/29/2021; PICC line requested, ID recommended long-term antibiotics stop date 05/03/2021 DC planning per case management with long-term antibiotic arrangement/ Discharge when all the above is set up Plan of care reviewed with the patient and his nurse History Interval history: I have seen and examined the patient this morning Patient's chart and medications reviewed Patient feels better anxious to go home Vital signs noted Hospitalist Physical - Constitutional Vitals: Temp Pulse Resp BP Pulse Ox 98.3 F 84 20 153/81 95 03/29/21 07:27 03/29/21 07:27 03/29/21 07:27 03/29/21 07:27 03/29/21 07:27 General appearance: Present: no acute distress, well-nourished, obese (Morbidly obese) - EENT Eyes: Present: PERRL, EOM intact - Neck Neck: Present: supple, normal ROM - Respiratory Respiratory effort: normal Respiratory: bilateral: diminished, negative: rales, rhonchi, wheezing - Cardiovascular Rhythm: regular Heart Sounds: Present: S1 & S2 - Extremities Extremities: no ischemia, No edema, abnormal (Right foot osteomyelitis) - Abdominal General gastrointestinal: soft, non-tender, non-distended, normal bowel sounds - Integumentary Integumentary: Present: clear, warm - Psychiatric Psychiatric: appropriate mood/affect, cooperative - Neurologic Neurologic: CNII-XII intact, moves all extremities Results - Labs CBC & Chem 7: 03/26/21 08:01 03/30/21 07:37 Labs: Laboratory Last Values WBC 10.5 K/mm3 (4.5-11.0) 03/26/21 08:01 RBC 3.80 M/mm3 (3.65-5.03) 03/26/21 08:01 Hgb 10.7 gm/dl (11.8-15.2) L 03/26/21 08:01 Hct 32.0 % (35.5-45.6) L 03/26/21 08:01 MCV 84 fl (84-94) 03/26/21 08:01 MCH 28 pg (28-32) 03/26/21 08:01 MCHC 33 % (32-34) 03/26/21 08:01 RDW 16.1 % (13.2-15.2) H 03/26/21 08:01 Plt Count 356 K/mm3 (140-440) 03/26/21 08:01 Lymph % (Auto) 18.8 % (13.4-35.0) 03/26/21 08:01 [place] % (Auto) 10.0 % (0.0-7.3) H 03/26/21 08:01 Eos % (Auto) 0.5 % (0.0-4.3) 03/26/21 08:01 Baso % (Auto) 0.3 % (0.0-1.8) 03/26/21 08:01 Lymph # (Auto) 2.0 K/mm3 (1.2-5.4) 03/26/21 08:01 [place] # (Auto) 1.1 K/mm3 (0.0-0.8) H 03/26/21 08:01 Eos # (Auto) 0.0 K/mm3 (0.0-0.4) 03/26/21 08:01 Baso # (Auto) 0.0 K/mm3 (0.0-0.1) 03/26/21 08:01 Seg Neutrophils % 70.4 % (40.0-70.0) H 03/26/21 08:01 Seg Neutrophils # 7.4 K/mm3 (1.8-7.7) 03/26/21 08:01 Sodium 137 mmol/L (137-145) D 03/27/21 04:34 Potassium 3.8 mmol/L (3.6-5.0) 03/27/21 04:34 Chloride 97.1 mmol/L (98-107) L 03/27/21 04:34 Carbon Dioxide 26 mmol/L (22-30) 03/27/21 04:34 Anion Gap 18 mmol/L 03/27/21 04:34 BUN 10 mg/dL (9-20) 03/27/21 04:34 Creatinine 1.0 mg/dL (0.8-1.3) 03/27/21 04:34 Estimated GFR > 60 ml/min 03/27/21 04:34 BUN/Creatinine Ratio 10 % 03/27/21 04:34 Glucose 119 mg/dL (75-100) H 03/27/21 04:34 POC Glucose 185 mg/dL (70-105) H 03/29/21 11:16 Hemoglobin A1c 6.7 % (4-6) H 03/26/21 08:01 Lactic Acid 2.00 mmol/L (0.7-2.0) 03/25/21 13:54 Calcium 9.1 mg/dL (8.4-10.2) 03/27/21 04:34 Total Bilirubin 1.20 mg/dL (0.1-1.2) 03/26/21 08:01 AST 44 units/L (5-40) H 03/26/21 08:01 ALT 24 units/L (7-56) 03/26/21 08:01 Alkaline Phosphatase 97 units/L (35-129) 03/26/21 08:01 Total Protein 8.3 g/dL (6.3-8.2) H 03/26/21 08:01 Albumin 2.7 g/dL (3.9-5) L 03/26/21 08:01 Albumin/Globulin Ratio 0.5 % 03/26/21 08:01 Vancomycin Trough 13.8 ug/mL (5.0-20.0) 03/28/21 05:47 Chin/IV: Voiding Method Urinal Active Medications - Current Medications Current Medications: Generic Name Dose Route Start Last Admin Trade Name Freq PRN Reason Stop Dose Admin Acetaminophen 650 mg 03/25/21 23:25 03/29/21 05:10 Acetaminophen 325 Mg Tab PO 650 mg Q4H PRN Administration Pain MILD(1-3)/Fever >100.5/JULIAN Famotidine 20 mg 03/26/21 10:00 03/29/21 08:41 Famotidine 20 Mg Tab PO 20 mg BID LISA Administration Furosemide 40 mg 03/28/21 10:00 03/29/21 08:41 Furosemide 40 Mg Tab PO 40 mg DAILY LISA Administration Hydromorphone HCl 0.5 mg 03/25/21 23:25 Hydromorphone 1 Mg/1 Ml Inj IV Q3H PRN Pain , Severe (7-10) Vancomycin HCl 1,750 mg/ 535 mls @ 333.333 mls/hr 03/26/21 18:00 03/29/21 07:30 Sodium Chloride IV Infused Q12H LISA Infusion Ceftriaxone Sodium 2 gm in 100 mls @ 200 mls/hr 03/26/21 18:00 03/28/21 21:26 Rocephin/Ns 2 Gm/100 Ml IV Infused Q24H LISA Infusion Protocol Insulin Human Lispro 0 unit 03/26/21 07:30 03/29/21 08:40 Insulin Lispro 100 Unit/Ml SUB-Q Not Given ACHS [facility] Protocol Metoclopramide HCl 10 mg 03/25/21 23:25 Metoclopramide 10 Mg/2 Ml Inj IV Q6H PRN Nausea And Vomiting Nifedipine 90 mg 03/28/21 10:00 03/29/21 08:41 Nifedipine Xl 90 Mg Tab PO 90 mg QDAY LISA Administration Ondansetron HCl 4 mg 03/25/21 23:25 Ondansetron 4 Mg/2 Ml Inj IV Q3H PRN Nausea And Vomiting Oxycodone/Acetaminophen 2 tab 03/25/21 23:25 03/29/21 05:09 Oxycodone /Acetaminophen 5-325mg Tab PO 2 tab Q6H PRN Administration Pain, Moderate (4-6) Sodium Chloride 10 ml 03/26/21 10:00 03/29/21 05:01 Sodium Chloride 0.9% 10 Ml Flush Syringe IV 10 ml BID LISA Administration Sodium Chloride 10 ml 03/25/21 23:25 Sodium Chloride 0.9% 10 Ml Flush Syringe IV PRN PRN LINE FLUSH Nutrition/Malnutrition Assess - Dietary Evaluation Nutrition/Malnutrition Findings: Nutrition Notes Start: 03/26/21 11:10 Freq: Status: Active Protocol: Document 03/26/21 11:11 ZAIN (Rec: 03/26/21 11:16 ZIAN [id number]) Nutrition Notes Need for Assessment generated from: advertising editor Initial or Follow up Brief Note Current Diagnosis Diabetes,Hypertension Other Pertinent Diagnosis (R) foot ulcer, RLE cellulitis , SIRS, peripheral artery dz Current Diet Cardiac Labs/Tests A1C 6.7 Pertinent Medications Reviewed Height 6 ft Weight 135.5 kg [place] Body Weight (kg) 80.90 BMI 40.5 Intake Prior to Admission Good Weight Status Morbidly Obese Subjective/Other Information Pt screened for skin risk and new onset of DM, however, pt reports being diabetic for 20 yrs. Pt reports good appetite and knowledge of food sources of CHO. He says his foot got infected because he underwent 2 previous procedures and was sent home without abx. He says he controls his BS " pretty good". Burn Absent Trauma Absent Current % PO Good (75-100%) Minimum of two criteria No Nutrition Intervention Change Diet Order: Add Consistent CHO modifier to current diet order Revisit per MD consult or patient Sign Off request:
--- NOTE | 2021-03-29 14:32 | Event Note ---
Date: 03/29/21 60-year-old male with diabetic right foot wound with osteomyelitis and right lower extremity cellulitis Xray right foot - "Markedly abnormal soft tissues of the foot, recommend MR to exclude osteomyelitis." Venous duplex LE - no DVT Arterial u/s LE - "No sonographic evidence of hemodynamically significant lower extremity peripheral arterial disease." MRI foot - outpatient - right dorsal foot wound, septic tenosynovitis, early osteomyelitis. Plan: 1. Diabetic diet. HbA1C is 6.7 2. Strict glucose control 3. prn PO pain control 4. abx per ID 5. follow up wound cultures - discussed with micro, no growth thus far 6. continue wound care - packing wound with mesalt daily. 7. elevate RLE Ok to dc when ID recs are finalized. Patient to follow up in wound care clinic at next scheduled date. Will s/o Thank you, please call with questions.
--- NOTE | 2021-03-29 16:27 | Progress Note ---
Assessment and Plan Cultures: 03/27/2021 wound culture: No growth so far. No organisms on Gram stain A/P: 60-year-old male with morbid obesity, diabetes mellitus type 2: #Right foot diabetic infection, cellulitis, recent abscess and MRI with evidence of osteomyelitis: Status post I&D more than a month ago by podiatry, more recently I&D at the wound care center. No vascular disease noted. Appreciate Dr. Parry's assistance in obtaining outpatient MRI, showed nonspecific marrow edema in the second and third metatarsal heads and in the medial cuneiform, findings could represent osteomyelitis or reactive marrow change. Favor treating this as osteomyelitis. #Diabetes mellitus type 2: Maintain glycemic control Recs: -IV ceftriaxone 2 g daily plus IV vancomycin 1250 mg every 12 hours for 6 weeks ending 05/03/2021 -PICC line ordered -CM orders placed -OK for discharge once above arranged -ID clinic f/u with me (computer processing scheduler notified) Tahir Redmond MD, FACP [facility] ([facility]) O: [phone] F: [phone] Subjective Date of service: 03/29/21 Interval history: No fever. Right leg continues to slowly get better. Patient hoping for discharge soon. Objective - Exam Narrative Exam: Physical Exam: Constitutional: Alert, cooperative. No acute distress Head, Ears, Nose: Normocephalic, atraumatic. External ears, nose normal Eyes: Conjunctivae/corneas clear. No icterus. No ptosis. Neck: Supple, no meningeal signs Cardiovascular: S1, S2 normal. Respiratory: Good air entry, clear to auscultation bilaterally GI: Soft, non-tender; bowel sounds normal. No peritoneal signs Musculoskeletal: Right foot dorsum with wound with packing. RLE swelling, redness, warmth and tenderness + Skin: No rash or abscess Hem/Lymphatic: No palpable cervical or supraclavicular nodes. No lymphangitis Psych: Mood ok. Affect normal Neurological: Awake, alert, oriented. No gross abnormality - Constitutional Vitals: Vital Signs Temp Pulse Resp BP Pulse Ox 98 F 95 H 20 138/71 98 03/29/21 11:30 03/29/21 11:30 03/29/21 11:30 03/29/21 11:30 03/29/21 11:30 Temperature -Last 24 Hours Temperature 98 F Temperature 98.3 F Temperature 98.6 F Temperature 98.7 F Temperature 98.7 F - Labs CBC & Chem 7: 03/26/21 08:01 03/27/21 04:34 Labs: Abnormal lab results 03/28/21 03/28/21 03/29/21 Range/Units 16:10 21:00 07:25 POC Glucose 159 H 157 H 148 H (70-105) mg/dL 03/29/21 Range/Units 11:16 POC Glucose 185 H (70-105) mg/dL
[2021-03-29] MEDS: cefTRIAXone/NS 2 GM/100 ML 2 GM/100 ML BAG IV SCH (17:30)
[2021-03-30] MEDS: VANCOMYCIN 1,750 MG in SODIUM CHLORIDE 0.9% 500 ML 500 ML IV SCH ×2 (05:57→19:11)
[2021-03-30] MEDS: oxyCODONE /ACETAMINOPHEN 5-325MG TAB PO PRN ×2 (06:04→19:15)
[2021-03-30] MEDS: INSULIN LISPRO 100 UNIT/ML SUB-Q SCH ×4 (07:53→21:30)
[2021-03-30 08:23] LABS: BUN/Creatinine Ratio 11; Blood Urea Nitrogen 9 mg/dL (9-20); Calcium 8.4 mg/dL (8.4-10.2); Hemolysis Index 0
--- NOTE | 2021-03-30 08:41 | Progress Note ---
Assessment and Plan Assessment and plan: --Right foot osteomyelitis; Continue Rocephin and vancomycin per ID Follow wound cultures, PICC line requested Patient long-term IV antibiotics, -IV ceftriaxone 2 g daily plus IV vancomycin 1250 mg every 12 hours for 6 weeks ending 05/03/2021 PICC line placed today 6 weeks IV antibiotics could not be set up due to long weekend Will continue current management CM called the on-call pharmacist with [facility], , who advised CM that no IV ABTx would delivered before Thursday due to the Holiday. CM faxed clinical information to [facility] [phone] --SIRS (systemic inflammatory response syndrome) Current Visit: Yes Status: Acute Patient has leukocytosis and tachycardia secondary to right lower extremity cellulitis and right foot abscess --Diabetic wound/ of right lower extremity Current Visit: Yes Status: Acute Patient initiated on IV antibiotics in the form of Unasyn and vancomycin Wound cultures, Surgery evaluation noted and appreciated Check MRI right foot to rule out osteomyelitis ID consult, surgery evaluation noted and appreciated -- Hypertension Current Visit: Yes Status: Chronic : Well controlled continue antihypertensives and adjust medications as necessary. --Hyponatremia; resolved monitor electrolytes --Severe protein calorie malnutrition; Hypoalbuminemia nutrition supplements. Nutrition consul --Type 2 diabetes mellitus /A1c 6.7 Current Visit: Yes Status: Chronic t Patient's blood sugars are well controlled Blood sugars less than 200, A1c 6.7 Patient is on high doses of 3 oral hypoglycemics Hold right now, and resume as needed Continue sliding scale coverage --Peripheral arterial disease Current Visit: Yes Status: Chronic Duplex scan of right lower extremity Vascular surgery evaluated the patient No vascular intervention needed Advised to continue antibiotic therapy and wound care --DVT prophylaxis Current Visit: Yes Status: Acute On heparin and GI prophylaxis Advance Directives: Yes (Full code) VTE prophylaxis?: Chemical Plan of care discussed with patient/family: Yes Closely monitor the patient and adjust management as needed Plan of care reviewed with the patient and his nurse Automotive Professional recommendations noted and appreciated 03/27/2021; osteomyelitis right foot, on Rocephin and Vanco ID considering long-term antibiotics and PICC placement Patient's blood sugars are reasonable level, did not need oral hypoglycemics Discussed with patient in detail that we will resume his home diabetic medications Once his blood sugars are high, patient verbalized understanding 03/28/2021; continue current antibiotics Elevate the limb, supportive care Vascular evaluated, no vascular intervention continue antibiotics and wound care 03/29/2021; PICC line requested, ID recommended long-term antibiotics stop date 05/03/2021 DC planning per case management with long-term antibiotic arrangement/ Discharge when all the above is set up. 03/30/2021; discussed with case management, unable to process and set up IV antibiotics Due to long weekend. Patient is very upset We will continue current in-house antibiotics and discharge the patient as soon as The home antibiotics are set up Plan of care reviewed with the patient and his nurse History Interval history: I seen and examined the patient at the bedside Patient's chart and medications reviewed Patient is anxious to go home today However, CM reports that due to the long weekend No long-term home antibiotics could not be set up During this long weekend Patient was very upset when I explained the situation Patient vital signs are stable Hospitalist Physical - Constitutional Vitals: Temp Pulse Resp BP Pulse Ox 98.6 F 88 17 140/72 96 03/30/21 05:30 03/30/21 05:30 03/30/21 06:04 03/30/21 05:30 03/30/21 05:30 General appearance: Present: no acute distress, well-nourished, obese (Morbidly obese) - EENT Eyes: Present: PERRL, EOM intact - Neck Neck: Present: supple, normal ROM - Respiratory Respiratory effort: normal Respiratory: bilateral: diminished, negative: rales, rhonchi, wheezing - Cardiovascular Rhythm: regular Heart Sounds: Present: S1 & S2 - Extremities Extremities: no ischemia, No edema, abnormal (Right foot dressing in place) - Abdominal General gastrointestinal: soft, non-tender, non-distended, normal bowel sounds - Integumentary Integumentary: Present: clear, warm - Psychiatric Psychiatric: appropriate mood/affect, cooperative - Neurologic Neurologic: moves all extremities Results - Labs CBC & Chem 7: 03/26/21 08:01 03/30/21 07:37 Labs: Laboratory Last Values WBC 10.5 K/mm3 (4.5-11.0) 03/26/21 08:01 RBC 3.80 M/mm3 (3.65-5.03) 03/26/21 08:01 Hgb 10.7 gm/dl (11.8-15.2) L 03/26/21 08:01 Hct 32.0 % (35.5-45.6) L 03/26/21 08:01 MCV 84 fl (84-94) 03/26/21 08:01 MCH 28 pg (28-32) 03/26/21 08:01 MCHC 33 % (32-34) 03/26/21 08:01 RDW 16.1 % (13.2-15.2) H 03/26/21 08:01 Plt Count 356 K/mm3 (140-440) 03/26/21 08:01 Lymph % (Auto) 18.8 % (13.4-35.0) 03/26/21 08:01 Maury % (Auto) 10.0 % (0.0-7.3) H 03/26/21 08:01 Eos % (Auto) 0.5 % (0.0-4.3) 03/26/21 08:01 Baso % (Auto) 0.3 % (0.0-1.8) 03/26/21 08:01 Lymph # (Auto) 2.0 K/mm3 (1.2-5.4) 03/26/21 08:01 Maury # (Auto) 1.1 K/mm3 (0.0-0.8) H 03/26/21 08:01 Eos # (Auto) 0.0 K/mm3 (0.0-0.4) 03/26/21 08:01 Baso # (Auto) 0.0 K/mm3 (0.0-0.1) 03/26/21 08:01 Seg Neutrophils % 70.4 % (40.0-70.0) H 03/26/21 08:01 Seg Neutrophils # 7.4 K/mm3 (1.8-7.7) 03/26/21 08:01 Sodium 138 mmol/L (137-145) 03/30/21 07:37 Potassium 4.1 mmol/L (3.6-5.0) 03/30/21 07:37 Chloride 103.3 mmol/L (98-107) 03/30/21 07:37 Carbon Dioxide 24 mmol/L (22-30) 03/30/21 07:37 Anion Gap 15 mmol/L 03/30/21 07:37 BUN 9 mg/dL (9-20) 03/30/21 07:37 Creatinine 0.8 mg/dL (0.8-1.3) 03/30/21 07:37 Estimated GFR > 60 ml/min 03/30/21 07:37 BUN/Creatinine Ratio 11 % 03/30/21 07:37 Glucose 130 mg/dL (75-100) H 03/30/21 07:37 POC Glucose 136 mg/dL (70-105) H 03/29/21 21:05 Hemoglobin A1c 6.7 % (4-6) H 03/26/21 08:01 Lactic Acid 2.00 mmol/L (0.7-2.0) 03/25/21 13:54 Calcium 8.4 mg/dL (8.4-10.2) 03/30/21 07:37 Total Bilirubin 1.20 mg/dL (0.1-1.2) 03/26/21 08:01 AST 44 units/L (5-40) H 03/26/21 08:01 ALT 24 units/L (7-56) 03/26/21 08:01 Alkaline Phosphatase 97 units/L (35-129) 03/26/21 08:01 Total Protein 8.3 g/dL (6.3-8.2) H 03/26/21 08:01 Albumin 2.7 g/dL (3.9-5) L 03/26/21 08:01 Albumin/Globulin Ratio 0.5 % 03/26/21 08:01 Vancomycin Trough 13.8 ug/mL (5.0-20.0) 03/28/21 05:47 Microbiology: Microbiology 03/27/21 17:50 Foot - Right Wound Culture - Preliminary Chin/IV: Voiding Method Urinal Active Medications - Current Medications Current Medications: Generic Name Dose Route Start Last Admin Trade Name Freq PRN Reason Stop Dose Admin Acetaminophen 650 mg 03/25/21 23:25 03/29/21 05:10 Acetaminophen 325 Mg Tab PO 650 mg Q4H PRN Administration Pain MILD(1-3)/Fever >100.5/JULIAN Famotidine 20 mg 03/26/21 10:00 03/29/21 21:24 Famotidine 20 Mg Tab PO 20 mg BID LISA Administration Furosemide 40 mg 03/28/21 10:00 03/29/21 10:00 Furosemide 40 Mg Tab PO Not Given DAILY LISA Hydromorphone HCl 0.5 mg 03/25/21 23:25 Hydromorphone 1 Mg/1 Ml Inj IV Q3H PRN Pain , Severe (7-10) Vancomycin HCl 1,750 mg/ 535 mls @ 333.333 mls/hr 03/26/21 18:00 03/30/21 05:57 Sodium Chloride IV 333.333 mls/hr Q12H LISA Administration Ceftriaxone Sodium 2 gm in 100 mls @ 200 mls/hr 03/26/21 18:00 03/29/21 17:30 Rocephin/Ns 2 Gm/100 Ml IV 200 mls/hr Q24H LISA Administration Protocol Insulin Human Lispro 0 unit 03/26/21 07:30 03/30/21 07:53 Insulin Lispro 100 Unit/Ml SUB-Q Not Given ACHS [facility] Protocol Metoclopramide HCl 10 mg 03/25/21 23:25 Metoclopramide 10 Mg/2 Ml Inj IV Q6H PRN Nausea And Vomiting Nifedipine 90 mg 03/28/21 10:00 03/29/21 10:00 Nifedipine Xl 90 Mg Tab PO Not Given QDAY LISA Ondansetron HCl 4 mg 03/25/21 23:25 Ondansetron 4 Mg/2 Ml Inj IV Q3H PRN Nausea And Vomiting Oxycodone/Acetaminophen 2 tab 03/25/21 23:25 03/30/21 06:04 Oxycodone /Acetaminophen 5-325mg Tab PO 2 tab Q6H PRN Administration Pain, Moderate (4-6) Sodium Chloride 10 ml 03/26/21 10:00 03/29/21 21:25 Sodium Chloride 0.9% 10 Ml Flush Syringe IV 10 ml BID LISA Administration Sodium Chloride 10 ml 03/25/21 23:25 Sodium Chloride 0.9% 10 Ml Flush Syringe IV PRN PRN LINE FLUSH Nutrition/Malnutrition Assess - Dietary Evaluation Nutrition/Malnutrition Findings: Nutrition Notes Start: 03/26/21 11:10 Freq: Status: Active Protocol: Document 03/26/21 11:11 ZAIN (Rec: 03/26/21 11:16 ZAIN [id number]) Nutrition Notes Need for Assessment generated from: commissions specialist Initial or Follow up Brief Note Current Diagnosis Diabetes,Hypertension Other Pertinent Diagnosis (R) foot ulcer, RLE cellulitis , SIRS, peripheral artery dz Current Diet Cardiac Labs/Tests A1C 6.7 Pertinent Medications Reviewed Height 6 ft Weight 135.5 kg [place] Body Weight (kg) 80.90 BMI 40.5 Intake Prior to Admission Good Weight Status Morbidly Obese Subjective/Other Information Pt screened for skin risk and new onset of DM, however, pt reports being diabetic for 20 yrs. Pt reports good appetite and knowledge of food sources of CHO. He says his foot got infected because he underwent 2 previous procedures and was sent home without abx. He says he controls his BS " pretty good". Burn Absent Trauma Absent Current % PO Good (75-100%) Minimum of two criteria No Nutrition Intervention Change Diet Order: Add Consistent CHO modifier to current diet order Revisit per MD consult or patient Sign Off request:
[2021-03-30] MEDS: NIFEdipine XL 90 MG TAB PO SCH (09:15)
[2021-03-30] MEDS: FAMOTIDINE 20 MG TAB PO SCH ×2 (09:15→22:00)
[2021-03-30] MEDS: FUROSEMIDE 40 MG TAB PO SCH (09:15)
--- NOTE | 2021-03-30 11:23 | Progress Note ---
Assessment and Plan Cultures: 03/27/2021 wound culture: No growth so far. No organisms on Gram stain A/P: 60-year-old male with morbid obesity, diabetes mellitus type 2: #Right foot diabetic infection, cellulitis, recent abscess and MRI with evidence of osteomyelitis: Status post I&D more than a month ago by podiatry, more recently I&D at the wound care center. No vascular disease noted. Appreciate Dr. Parry's assistance in obtaining outpatient MRI, showed nonspecific marrow edema in the second and third metatarsal heads and in the medial cuneiform, findings could represent osteomyelitis or reactive marrow change. Favor treating this as osteomyelitis. #Diabetes mellitus type 2: Maintain glycemic control Recs: -IV ceftriaxone 2 g daily plus IV vancomycin 1250 mg every 12 hours for 6 weeks ending 05/03/2021 -CM orders placed yesterday -OK for discharge once above arranged -ID clinic f/u with me (emt basic notified) Tahir Redmond MD, FACP [facility] ([facility] O: [phone] F: [phone] Subjective Date of service: 03/30/21 Interval history: No fever. Right leg continues to slowly get better. Patient hoping for discharge soon. Got PICC line. Objective - Exam Narrative Exam: Physical Exam: Constitutional: Alert, cooperative. No acute distress Head, Ears, Nose: Normocephalic, atraumatic. External ears, nose normal Eyes: Conjunctivae/corneas clear. No icterus. No ptosis. Neck: Supple, no meningeal signs Cardiovascular: S1, S2 normal. Respiratory: Good air entry, clear to auscultation bilaterally GI: Soft, non-tender; bowel sounds normal. No peritoneal signs Musculoskeletal: Right foot dorsum with wound with packing. RLE swelling, redness, warmth and tenderness + Skin: No rash or abscess Hem/Lymphatic: No palpable cervical or supraclavicular nodes. No lymphangitis Psych: Mood ok. Affect normal Neurological: Awake, alert, oriented. No gross abnormality - Constitutional Vitals: Vital Signs Temp Pulse Resp BP Pulse Ox 99.1 F 84 18 131/68 96 03/30/21 07:30 03/30/21 07:30 03/30/21 07:30 03/30/21 07:30 03/30/21 07:30 Temperature -Last 24 Hours Temperature 99.1 F Temperature 98.6 F Temperature 98.5 F Temperature 98.5 F Temperature 98.3 F Temperature 98 F - Labs CBC & Chem 7: 03/26/21 08:01 03/30/21 07:37 Labs: Abnormal lab results 03/29/21 03/29/21 03/29/21 Range/Units 11:16 16:12 21:05 Glucose (75-100) mg/dL POC Glucose 185 H 265 H 136 H (70-105) mg/dL 03/30/21 03/30/21 Range/Units 07:28 07:37 Glucose 130 H (75-100) mg/dL POC Glucose 134 H (70-105) mg/dL
[2021-03-30] MEDS: cefTRIAXone/NS 2 GM/100 ML 2 GM/100 ML BAG IV SCH (18:33)
[2021-03-31] MEDS: VANCOMYCIN 1,750 MG in SODIUM CHLORIDE 0.9% 500 ML 500 ML IV SCH ×2 (05:24→17:41)
[2021-03-31] MEDS: oxyCODONE /ACETAMINOPHEN 5-325MG TAB PO PRN ×3 (05:25→21:44)
[2021-03-31] MEDS: INSULIN LISPRO 100 UNIT/ML SUB-Q SCH ×4 (09:16→22:04)
[2021-03-31] MEDS: FUROSEMIDE 40 MG TAB PO SCH (10:46)
[2021-03-31] MEDS: FAMOTIDINE 20 MG TAB PO SCH ×2 (10:46→21:43)
[2021-03-31] MEDS: NIFEdipine XL 90 MG TAB PO SCH (10:46)
--- NOTE | 2021-03-31 10:46 | Progress Note ---
Assessment and Plan Cultures: 03/27/2021 wound culture: No growth so far. A/P: 60-year-old male with morbid obesity, diabetes mellitus type 2: #Right foot diabetic infection, cellulitis, recent abscess and MRI with evidence of osteomyelitis: Status post I&D more than a month ago by podiatry, more recently I&D at the wound care center. No vascular disease noted. Appreciate Dr. Parry's assistance in obtaining outpatient MRI, showed nonspecific marrow edema in the second and third metatarsal heads and in the medial cuneiform, findings could represent osteomyelitis or reactive marrow change. Favor treating this as osteomyelitis. #Diabetes mellitus type 2: Maintain glycemic control Recs: -IV ceftriaxone 2 g daily plus IV vancomycin 1250 mg every 12 hours for 6 weeks ending 05/03/2021 -OK for discharge once above arranged by case management -ID clinic f/u with me (nursing scheduler notified) Tahir Redmond MD, FACP [facility] ([facility] O: [phone] F: [phone] Subjective Date of service: 03/31/21 Interval history: No fever. Right leg continues to slowly get better. Awaiting arrangement of home health and IV abx at home, delayed due to the long weekend. Objective - Exam Narrative Exam: Physical Exam: Constitutional: Alert, cooperative. No acute distress Head, Ears, Nose: Normocephalic, atraumatic. External ears, nose normal Eyes: Conjunctivae/corneas clear. No icterus. No ptosis. Neck: Supple, no meningeal signs Cardiovascular: S1, S2 normal. Respiratory: Good air entry, clear to auscultation bilaterally GI: Soft, non-tender; bowel sounds normal. No peritoneal signs Musculoskeletal: Right foot with dressing. RLE swelling, redness, warmth and tenderness + Skin: No rash or abscess Hem/Lymphatic: No palpable cervical or supraclavicular nodes. No lymphangitis Psych: Mood ok. Affect normal Neurological: Awake, alert, oriented. No gross abnormality - Constitutional Vitals: Vital Signs Temp Pulse Resp BP Pulse Ox 98.1 F 84 18 133/70 97 03/30/21 19:16 03/30/21 19:16 03/30/21 19:16 03/30/21 19:16 03/30/21 19:16 Temperature -Last 24 Hours Temperature 98.1 F Temperature 98.9 F - Labs CBC & Chem 7: 03/26/21 08:01 03/30/21 07:37 Labs: Abnormal lab results 03/30/21 03/30/21 03/30/21 Range/Units 07:28 11:45 15:41 POC Glucose 134 H 170 H 182 H (70-105) mg/dL 03/30/21 03/31/21 Range/Units 20:53 08:27 POC Glucose 124 H 142 H (70-105) mg/dL
--- NOTE | 2021-03-31 12:49 | Progress Note ---
Assessment and Plan Assessment and plan: --Right foot osteomyelitis; Current Visit: Yes Status: Acute Continue Rocephin and vancomycin per ID ID advised long-term IV antibiotics, -IV ceftriaxone 2 g daily plus IV vancomycin 1250 mg every 12 hours for 6 weeks ending 05/03/2021 PICC line placed today, case management to set up home health and IV antibiotics Delay in setting up IV antibiotics and home health is due to long weekend --SIRS (systemic inflammatory response syndrome) Current Visit: Yes Status: Acute Patient has leukocytosis and tachycardia secondary to right lower extremity cellulitis osteomyelitis --Diabetic wound/ of right lower extremity Current Visit: Yes Status: Acute Continue IV antibiotics, follow cultures MRI findings positive for osteomyelitis -- Hypertension Current Visit: Yes Status: Chronic : Well controlled continue antihypertensives and adjust medications as necessary. --Hyponatremia; resolved Current Visit: Yes Status: Acute monitor electrolytes --Severe protein calorie malnutrition; Current Visit: Yes Status: Acute Hypoalbuminemia nutrition supplements. Nutrition consul --Type 2 diabetes mellitus /A1c 6.7 Current Visit: Yes Status: Chronic t Patient's blood sugars are well controlled Blood sugars less than 200, A1c 6.7 Patient is on high doses of 3 oral hypoglycemics Hold right now, and resume as needed Continue sliding scale coverage --Peripheral arterial disease Current Visit: Yes Status: Chronic Duplex scan of right lower extremity Vascular surgery evaluated the patient No vascular intervention needed Advised to continue antibiotic therapy and wound care --DVT prophylaxis Current Visit: Yes Status: Acute On heparin and GI prophylaxis Advance Directives: Yes (Full code) VTE prophylaxis?: Chemical Plan of care discussed with patient/family: Yes Closely monitor the patient and adjust management as needed Plan of care reviewed with the patient and his nurse Patient Financial Services Specialist recommendations noted and appreciated 03/27/2021; osteomyelitis right foot, on Rocephin and Vanco ID considering long-term antibiotics and PICC placement Patient's blood sugars are reasonable level, did not need oral hypoglycemics Discussed with patient in detail that we will resume his home diabetic medications Once his blood sugars are high, patient verbalized understanding 03/28/2021; continue current antibiotics Elevate the limb, supportive care Vascular evaluated, no vascular intervention continue antibiotics and wound care 03/29/2021; PICC line requested, ID recommended long-term antibiotics stop date 05/03/2021 DC planning per case management with long-term antibiotic arrangement/ Discharge when all the above is set up. 03/30/2021; discussed with case management, unable to process and set up IV antibiotics Due to long weekend. Patient is very upset We will continue current in-house antibiotics and discharge the patient as soon as The home antibiotics are set up 03/31/2021; patient waiting for IV antibiotics to be set up, delayed due to long weekend Continue current antibiotics in-house Possible discharge in 1 to 2 days if IV antibiotics are set up Plan of care reviewed with the patient and his nurse History Interval history: I seen and examined the patient at the bedside Patient's chart and medications reviewed Hospitalist Physical - Constitutional Vitals: Temp Pulse Resp BP Pulse Ox 98.1 F 84 18 133/70 97 03/30/21 19:16 03/30/21 19:16 03/30/21 19:16 03/30/21 19:16 03/30/21 19:16 General appearance: Present: no acute distress, well-nourished, obese (Morbidly obese) - EENT Eyes: Present: PERRL, EOM intact - Neck Neck: Present: supple, normal ROM - Respiratory Respiratory effort: normal Respiratory: bilateral: diminished, negative: rales, rhonchi - Cardiovascular Rhythm: regular Heart Sounds: Present: S1 & S2 - Extremities Extremities: no ischemia, abnormal (Osteomyelitis foot right dressing) Extremity abnormal: edema - Abdominal General gastrointestinal: soft, non-tender, non-distended, normal bowel sounds - Integumentary Integumentary: Present: clear, warm - Psychiatric Psychiatric: appropriate mood/affect - Neurologic Neurologic: CNII-XII intact, moves all extremities Results - Labs CBC & Chem 7: 03/26/21 08:01 03/30/21 07:37 Labs: Laboratory Last Values WBC 10.5 K/mm3 (4.5-11.0) 03/26/21 08:01 RBC 3.80 M/mm3 (3.65-5.03) 03/26/21 08:01 Hgb 10.7 gm/dl (11.8-15.2) L 03/26/21 08:01 Hct 32.0 % (35.5-45.6) L 03/26/21 08:01 MCV 84 fl (84-94) 03/26/21 08:01 MCH 28 pg (28-32) 03/26/21 08:01 MCHC 33 % (32-34) 03/26/21 08:01 RDW 16.1 % (13.2-15.2) H 03/26/21 08:01 Plt Count 356 K/mm3 (140-440) 03/26/21 08:01 Lymph % (Auto) 18.8 % (13.4-35.0) 03/26/21 08:01 [place] % (Auto) 10.0 % (0.0-7.3) H 03/26/21 08:01 Eos % (Auto) 0.5 % (0.0-4.3) 03/26/21 08:01 Baso % (Auto) 0.3 % (0.0-1.8) 03/26/21 08:01 Lymph # (Auto) 2.0 K/mm3 (1.2-5.4) 03/26/21 08:01 Nolan # (Auto) 1.1 K/mm3 (0.0-0.8) H 03/26/21 08:01 Eos # (Auto) 0.0 K/mm3 (0.0-0.4) 03/26/21 08:01 Baso # (Auto) 0.0 K/mm3 (0.0-0.1) 03/26/21 08:01 Seg Neutrophils % 70.4 % (40.0-70.0) H 03/26/21 08:01 Seg Neutrophils # 7.4 K/mm3 (1.8-7.7) 03/26/21 08:01 Sodium 138 mmol/L (137-145) 03/30/21 07:37 Potassium 4.1 mmol/L (3.6-5.0) 03/30/21 07:37 Chloride 103.3 mmol/L (98-107) 03/30/21 07:37 Carbon Dioxide 24 mmol/L (22-30) 03/30/21 07:37 Anion Gap 15 mmol/L 03/30/21 07:37 BUN 9 mg/dL (9-20) 03/30/21 07:37 Creatinine 0.8 mg/dL (0.8-1.3) 03/30/21 07:37 Estimated GFR > 60 ml/min 03/30/21 07:37 BUN/Creatinine Ratio 11 % 03/30/21 07:37 Glucose 130 mg/dL (75-100) H 03/30/21 07:37 POC Glucose 149 mg/dL (70-105) H 03/31/21 11:52 Hemoglobin A1c 6.7 % (4-6) H 03/26/21 08:01 Lactic Acid 2.00 mmol/L (0.7-2.0) 03/25/21 13:54 Calcium 8.4 mg/dL (8.4-10.2) 03/30/21 07:37 Total Bilirubin 1.20 mg/dL (0.1-1.2) 03/26/21 08:01 AST 44 units/L (5-40) H 03/26/21 08:01 ALT 24 units/L (7-56) 03/26/21 08:01 Alkaline Phosphatase 97 units/L (35-129) 03/26/21 08:01 Total Protein 8.3 g/dL (6.3-8.2) H 03/26/21 08:01 Albumin 2.7 g/dL (3.9-5) L 03/26/21 08:01 Albumin/Globulin Ratio 0.5 % 03/26/21 08:01 Vancomycin Trough 13.8 ug/mL (5.0-20.0) 03/28/21 05:47 Microbiology: Microbiology 03/27/21 17:50 Foot - Right Wound Culture - Preliminary Chin/IV: Voiding Method Toilet Active Medications - Current Medications Current Medications: Generic Name Dose Route Start Last Admin Trade Name Freq PRN Reason Stop Dose Admin Acetaminophen 650 mg 03/25/21 23:25 03/29/21 05:10 Acetaminophen 325 Mg Tab PO 650 mg Q4H PRN Administration Pain MILD(1-3)/Fever >100.5/JULIAN Famotidine 20 mg 03/26/21 10:00 03/31/21 10:46 Famotidine 20 Mg Tab PO 20 mg BID LISA Administration Furosemide 40 mg 03/28/21 10:00 03/31/21 10:46 Furosemide 40 Mg Tab PO 40 mg DAILY LISA Administration Hydromorphone HCl 0.5 mg 03/25/21 23:25 Hydromorphone 1 Mg/1 Ml Inj IV Q3H PRN Pain , Severe (7-10) Vancomycin HCl 1,750 mg/ 535 mls @ 333.333 mls/hr 03/26/21 18:00 03/31/21 05:24 Sodium Chloride IV 333.333 mls/hr Q12H LISA Administration Ceftriaxone Sodium 2 gm in 100 mls @ 200 mls/hr 03/26/21 18:00 03/30/21 18:33 Rocephin/Ns 2 Gm/100 Ml IV 05/03/21 18:29 200 mls/hr Q24H LISA Administration Protocol Insulin Human Lispro 0 unit 03/26/21 07:30 03/31/21 09:16 Insulin Lispro 100 Unit/Ml SUB-Q Not Given ACHS LISA Protocol Metoclopramide HCl 10 mg 03/25/21 23:25 Metoclopramide 10 Mg/2 Ml Inj IV Q6H PRN Nausea And Vomiting Nifedipine 90 mg 03/28/21 10:00 03/31/21 10:46 Nifedipine Xl 90 Mg Tab PO 90 mg QDAY LISA Administration Ondansetron HCl 4 mg 03/25/21 23:25 Ondansetron 4 Mg/2 Ml Inj IV Q3H PRN Nausea And Vomiting Oxycodone/Acetaminophen 2 tab 03/25/21 23:25 03/31/21 05:25 Oxycodone /Acetaminophen 5-325mg Tab PO 2 tab Q6H PRN Administration Pain, Moderate (4-6) Sodium Chloride 10 ml 03/26/21 10:00 03/31/21 10:48 Sodium Chloride 0.9% 10 Ml Flush Syringe IV 10 ml BID LISA Administration Sodium Chloride 10 ml 03/25/21 23:25 Sodium Chloride 0.9% 10 Ml Flush Syringe IV PRN PRN LINE FLUSH Nutrition/Malnutrition Assess - Dietary Evaluation Nutrition/Malnutrition Findings: Nutrition Notes Start: 03/26/21 11:10 Freq: Status: Active Protocol: Document 03/26/21 11:11 ZAIN (Rec: 03/26/21 11:16 ZAIN [id number]) Nutrition Notes 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 Pt reports good appetite and knowledge of food sources of CHO. He says his foot got infected because he underwent 2 previous procedures and was sent home without abx. He says he controls his BS " pretty good". Burn Absent Trauma Absent Current % PO Good (75-100%) Minimum of two criteria No Nutrition Intervention Change Diet Order: Add Consistent CHO modifier to current diet order Revisit per MD consult or patient Sign Off request:
[2021-03-31] MEDS: cefTRIAXone/NS 2 GM/100 ML 2 GM/100 ML BAG IV SCH (17:05)
[2021-04-01] MEDS: VANCOMYCIN 1,750 MG in SODIUM CHLORIDE 0.9% 500 ML 500 ML IV SCH ×2 (05:29→18:06)
[2021-04-01] MEDS: oxyCODONE /ACETAMINOPHEN 5-325MG TAB PO PRN ×3 (05:39→18:05)
--- NOTE | 2021-04-01 09:52 | Progress Note ---
Assessment and Plan Assessment and plan: --Right foot osteomyelitis; Current Visit: Yes Status: Acute Continue Rocephin and vancomycin per ID ID advised long-term IV antibiotics, -IV ceftriaxone 2 g daily plus IV vancomycin 1250 mg every 12 hours for 6 weeks ending 05/03/2021 PICC line placed today, case management to set up home health and IV antibiotics Delay in setting up IV antibiotics and home health is due to long weekend --SIRS (systemic inflammatory response syndrome) Current Visit: Yes Status: Acute Patient has leukocytosis and tachycardia secondary to right lower extremity cellulitis osteomyelitis --Diabetic wound/ of right lower extremity Current Visit: Yes Status: Acute Continue IV antibiotics, follow cultures MRI findings positive for osteomyelitis -- Hypertension Current Visit: Yes Status: Chronic : Well controlled continue antihypertensives and adjust medications as necessary. --Hyponatremia; resolved Current Visit: Yes Status: Acute monitor electrolytes --Severe protein calorie malnutrition; Current Visit: Yes Status: Acute Hypoalbuminemia nutrition supplements. Nutrition consul --Type 2 diabetes mellitus /A1c 6.7 Current Visit: Yes Status: Chronic t Patient's blood sugars are well controlled Blood sugars less than 200, A1c 6.7 Patient is on high doses of 3 oral hypoglycemics Hold right now, and resume as needed Continue sliding scale coverage --Peripheral arterial disease Current Visit: Yes Status: Chronic Duplex scan of right lower extremity Vascular surgery evaluated the patient No vascular intervention needed Advised to continue antibiotic therapy and wound care --DVT prophylaxis Current Visit: Yes Status: Acute On heparin and GI prophylaxis Advance Directives: Yes (Full code) VTE prophylaxis?: Chemical Plan of care discussed with patient/family: Yes Closely monitor the patient and adjust management as needed Plan of care reviewed with the patient and his nurse Respiratory Assistant recommendations noted and appreciated 03/27/2021; osteomyelitis right foot, on Rocephin and Vanco ID considering long-term antibiotics and PICC placement Patient's blood sugars are reasonable level, did not need oral hypoglycemics Discussed with patient in detail that we will resume his home diabetic medications Once his blood sugars are high, patient verbalized understanding 03/28/2021; continue current antibiotics Elevate the limb, supportive care Vascular evaluated, no vascular intervention continue antibiotics and wound care 03/29/2021; PICC line requested, ID recommended long-term antibiotics stop date 05/03/2021 DC planning per case management with long-term antibiotic arrangement/ Discharge when all the above is set up. 03/30/2021; discussed with case management, unable to process and set up IV antibiotics Due to long weekend. Patient is very upset We will continue current in-house antibiotics and discharge the patient as soon as The home antibiotics are set up 03/31/2021; patient waiting for IV antibiotics to be set up, delayed due to long weekend Continue current antibiotics in-house Possible discharge in 1 to 2 days if IV antibiotics are set up Plan of care reviewed with the patient and his nurse 04/01/2021; DC planning per case management Delay in setting of long-term IV antibiotics for osteomyelitis Due to long holiday weekend, Possible discharge tomorrow if antibiotics are set up History Interval history: I have seen and examined at the bedside this morning Patient's chart and medications reviewed Osteomyelitis of the right foot long-term IV antibiotics Patient is medically stable for discharge however long-term IV antibiotics could not be set up due to long weekend Case management processing Patient has no new complaints Vital signs reviewed Hospitalist Physical - Constitutional Vitals: Temp Pulse Resp BP Pulse Ox 98.0 F 72 20 140/70 96 04/01/21 07:35 04/01/21 07:35 04/01/21 07:35 04/01/21 07:35 04/01/21 07:35 General appearance: Present: no acute distress, well-nourished, obese (Morbidly obese) - EENT Eyes: Present: PERRL, EOM intact - Neck Neck: Present: supple, normal ROM - Respiratory Respiratory effort: normal Respiratory: bilateral: diminished, negative: rales, rhonchi, wheezing - Cardiovascular Rhythm: regular Heart Sounds: Present: S1 & S2 - Extremities Extremities: no ischemia, No edema, abnormal (Right foot osteomyelitis dressing in place) - Abdominal General gastrointestinal: soft, non-tender, non-distended, normal bowel sounds - Integumentary Integumentary: Present: clear, warm - Psychiatric Psychiatric: appropriate mood/affect, cooperative - Neurologic Neurologic: moves all extremities Results - Labs CBC & Chem 7: 03/26/21 08:01 03/30/21 07:37 Labs: Laboratory Last Values WBC 10.5 K/mm3 (4.5-11.0) 03/26/21 08:01 RBC 3.80 M/mm3 (3.65-5.03) 03/26/21 08:01 Hgb 10.7 gm/dl (11.8-15.2) L 03/26/21 08:01 Hct 32.0 % (35.5-45.6) L 03/26/21 08:01 MCV 84 fl (84-94) 03/26/21 08:01 MCH 28 pg (28-32) 03/26/21 08:01 MCHC 33 % (32-34) 03/26/21 08:01 RDW 16.1 % (13.2-15.2) H 03/26/21 08:01 Plt Count 356 K/mm3 (140-440) 03/26/21 08:01 Lymph % (Auto) 18.8 % (13.4-35.0) 03/26/21 08:01 [place] % (Auto) 10.0 % (0.0-7.3) H 03/26/21 08:01 Eos % (Auto) 0.5 % (0.0-4.3) 03/26/21 08:01 Baso % (Auto) 0.3 % (0.0-1.8) 03/26/21 08:01 Lymph # (Auto) 2.0 K/mm3 (1.2-5.4) 03/26/21 08:01 [place] # (Auto) 1.1 K/mm3 (0.0-0.8) H 03/26/21 08:01 Eos # (Auto) 0.0 K/mm3 (0.0-0.4) 03/26/21 08:01 Baso # (Auto) 0.0 K/mm3 (0.0-0.1) 03/26/21 08:01 Seg Neutrophils % 70.4 % (40.0-70.0) H 03/26/21 08:01 Seg Neutrophils # 7.4 K/mm3 (1.8-7.7) 03/26/21 08:01 Sodium 138 mmol/L (137-145) 03/30/21 07:37 Potassium 4.1 mmol/L (3.6-5.0) 03/30/21 07:37 Chloride 103.3 mmol/L (98-107) 03/30/21 07:37 Carbon Dioxide 24 mmol/L (22-30) 03/30/21 07:37 Anion Gap 15 mmol/L 03/30/21 07:37 BUN 9 mg/dL (9-20) 03/30/21 07:37 Creatinine 0.8 mg/dL (0.8-1.3) 03/30/21 07:37 Estimated GFR > 60 ml/min 03/30/21 07:37 BUN/Creatinine Ratio 11 % 03/30/21 07:37 Glucose 130 mg/dL (75-100) H 03/30/21 07:37 POC Glucose 155 mg/dL (70-105) H 03/31/21 21:31 Hemoglobin A1c 6.7 % (4-6) H 03/26/21 08:01 Lactic Acid 2.00 mmol/L (0.7-2.0) 03/25/21 13:54 Calcium 8.4 mg/dL (8.4-10.2) 03/30/21 07:37 Total Bilirubin 1.20 mg/dL (0.1-1.2) 03/26/21 08:01 AST 44 units/L (5-40) H 03/26/21 08:01 ALT 24 units/L (7-56) 03/26/21 08:01 Alkaline Phosphatase 97 units/L (35-129) 03/26/21 08:01 Total Protein 8.3 g/dL (6.3-8.2) H 03/26/21 08:01 Albumin 2.7 g/dL (3.9-5) L 03/26/21 08:01 Albumin/Globulin Ratio 0.5 % 03/26/21 08:01 Vancomycin Trough 13.8 ug/mL (5.0-20.0) 03/28/21 05:47 Microbiology: Microbiology 03/27/21 17:50 Foot - Right Wound Culture - Final Chin/IV: Voiding Method Urinal Active Medications - Current Medications Current Medications: Generic Name Dose Route Start Last Admin Trade Name Freq PRN Reason Stop Dose Admin Acetaminophen 650 mg 03/25/21 23:25 03/29/21 05:10 Acetaminophen 325 Mg Tab PO 650 mg Q4H PRN Administration Pain MILD(1-3)/Fever >100.5/JULIAN Famotidine 20 mg 03/26/21 10:00 03/31/21 21:43 Famotidine 20 Mg Tab PO 20 mg BID LISA Administration Furosemide 40 mg 03/28/21 10:00 03/31/21 10:46 Furosemide 40 Mg Tab PO 40 mg DAILY LISA Administration Hydromorphone HCl 0.5 mg 03/25/21 23:25 Hydromorphone 1 Mg/1 Ml Inj IV Q3H PRN Pain , Severe (7-10) Vancomycin HCl 1,750 mg/ 535 mls @ 333.333 mls/hr 03/26/21 18:00 04/01/21 05 :29 Sodium Chloride IV 333.333 mls/hr Q12H LISA Administration Ceftriaxone Sodium 2 gm in 100 mls @ 200 mls/hr 03/26/21 18:00 03/31/21 17:05 Rocephin/Ns 2 Gm/100 Ml IV 05/03/21 18:29 200 mls/hr Q24H LISA Administration Protocol Insulin Human Lispro 0 unit 03/26/21 07:30 03/31/21 22:04 Insulin Lispro 100 Unit/Ml SUB-Q 3 unit ACHS LISA Administration Protocol Metoclopramide HCl 10 mg 03/25/21 23:25 Metoclopramide 10 Mg/2 Ml Inj IV Q6H PRN Nausea And Vomiting Nifedipine 90 mg 03/28/21 10:00 03/31/21 10:46 Nifedipine Xl 90 Mg Tab PO 90 mg QDAY LISA Administration Ondansetron HCl 4 mg 03/25/21 23:25 Ondansetron 4 Mg/2 Ml Inj IV Q3H PRN Nausea And Vomiting Oxycodone/Acetaminophen 2 tab 03/25/21 23:25 04/01/21 05:39 Oxycodone /Acetaminophen 5-325mg Tab PO 2 tab Q6H PRN Administration Pain, Moderate (4-6) Sodium Chloride 10 ml 03/26/21 10:00 03/31/21 22:04 Sodium Chloride 0.9% 10 Ml Flush Syringe IV 10 ml BID LISA Administration Sodium Chloride 10 ml 03/25/21 23:25 Sodium Chloride 0.9% 10 Ml Flush Syringe IV PRN PRN LINE FLUSH Nutrition/Malnutrition Assess - Dietary Evaluation Nutrition/Malnutrition Findings: Nutrition Notes Start: 03/26/21 11:10 Freq: Status: Active Protocol: Document 04/01/21 08:06 LP (Rec: 04/01/21 08:06 LP [id number]) Nutrition Notes Need for Assessment generated from: LOS Initial or Follow up Brief Note Subjective/Other Information Screen for LOS. Pt consuming 100% of meals. Nutrition Intervention Revisit per MD consult or patient Sign Off request:
[2021-04-01] MEDS: FAMOTIDINE 20 MG TAB PO SCH ×2 (09:56→22:45)
[2021-04-01] MEDS: FUROSEMIDE 40 MG TAB PO SCH (09:56)
[2021-04-01] MEDS: NIFEdipine XL 90 MG TAB PO SCH (09:56)
[2021-04-01] MEDS: INSULIN LISPRO 100 UNIT/ML SUB-Q SCH ×3 (09:58→17:32)
--- NOTE | 2021-04-01 11:18 | Progress Note ---
Assessment and Plan Cultures: 03/27/2021 wound culture: No growth so far. A/P: 60-year-old male with morbid obesity, diabetes mellitus type 2: #Right foot diabetic infection, cellulitis, recent abscess and MRI with evidence of osteomyelitis: Status post I&D more than a month ago by podiatry, more recently I&D at the wound care center. No vascular disease noted. Appreciate Dr. Parry's assistance in obtaining outpatient MRI, showed nonspecific marrow edema in the second and third metatarsal heads and in the medial cuneiform, findings could represent osteomyelitis or reactive marrow change. Favor treating this as osteomyelitis. #Diabetes mellitus type 2: Maintain glycemic control Recs: -IV ceftriaxone 2 g daily plus IV vancomycin per PK consult for 6 weeks ending 05/03/2021 -OK for discharge once above arranged by case management -ID clinic f/u with me (casino cashier notified) Tahir Redmond MD, FACP [facility] ([facility] O: [phone] F: [phone] Subjective Date of service: 04/01/21 Interval history: No fever. Hoping to get discharged soon. No issued with abx, no rash, no nausea, vomiting or diarrhea. Objective - Exam Narrative Exam: Physical Exam: Constitutional: Alert, cooperative. No acute distress Head, Ears, Nose: Normocephalic, atraumatic. External ears, nose normal Eyes: Conjunctivae/corneas clear. No icterus. No ptosis. Neck: Supple, no meningeal signs Cardiovascular: S1, S2 normal. Respiratory: Good air entry, clear to auscultation bilaterally GI: Soft, non-tender; bowel sounds normal. No peritoneal signs Musculoskeletal: Right foot with dressing. RLE swelling, redness, warmth and tenderness + Skin: No rash or abscess Hem/Lymphatic: No palpable cervical or supraclavicular nodes. No lymphangitis Psych: Mood ok. Affect normal Neurological: Awake, alert, oriented. No gross abnormality - Constitutional Vitals: Vital Signs Temp Pulse Resp BP Pulse Ox 98.0 F 72 20 140/70 96 04/01/21 07:35 04/01/21 07:35 04/01/21 07:35 04/01/21 07:35 04/01/21 07:35 Temperature -Last 24 Hours Temperature 98.0 F Temperature 98.1 F Temperature 97.8 F - Labs CBC & Chem 7: 03/26/21 08:01 03/30/21 07:37 Labs: Abnormal lab results 03/31/21 03/31/21 03/31/21 Range/Units 11:52 16:26 21:31 POC Glucose 149 H 158 H 155 H (70-105) mg/dL
[2021-04-01] MEDS: cefTRIAXone/NS 2 GM/100 ML 2 GM/100 ML BAG IV SCH (17:31)
[2021-04-02] MEDS: INSULIN LISPRO 100 UNIT/ML SUB-Q SCH ×4 (03:02→16:46)
[2021-04-02] MEDS: VANCOMYCIN 1,750 MG in SODIUM CHLORIDE 0.9% 500 ML 500 ML IV SCH ×2 (05:16→17:39)
[2021-04-02] MEDS: oxyCODONE /ACETAMINOPHEN 5-325MG TAB PO PRN ×2 (05:16→15:33)
[2021-04-02 07:58] VITALS: BP 144/75
[2021-04-02] MEDS: FAMOTIDINE 20 MG TAB PO SCH (10:20)
[2021-04-02] MEDS: NIFEdipine XL 90 MG TAB PO SCH (10:20)
[2021-04-02] MEDS: FUROSEMIDE 40 MG TAB PO SCH (10:22)
--- NOTE | 2021-04-02 12:11 | Progress Note ---
Assessment and Plan Assessment and plan: --Right foot osteomyelitis; Current Visit: Yes Status: Acute Continue Rocephin and vancomycin per ID ID advised and informed CM for long-term IV antibiotics IV ceftriaxone 2 g daily plus IV vancomycin 1250 mg every 12 hours for 6 weeks ending 05/03/2021 PICC line placed today, case management to set up home health and IV antibiotics Delay in the process due to long weekend . --SIRS (systemic inflammatory response syndrome) Current Visit: Yes Status: Acute Patient has leukocytosis and tachycardia secondary to osteomyelitis of the foot --Diabetic wound/ of right lower extremity Current Visit: Yes Status: Acute Continue IV antibiotics, Rocephin and vancomycin Stop date 05/03/2021, CM processing IV infusion post discharge -- Hypertension Current Visit: Yes Status: Chronic : Well controlled continue antihypertensives --Hyponatremia; resolved Current Visit: Yes Status: Acute --Severe protein calorie malnutrition; Current Visit: Yes Status: Acute Hypoalbuminemia nutrition supplements. --Type 2 diabetes mellitus /A1c 6.7 Current Visit: Yes Status: Chronic t Patient's blood sugars are well controlled Blood sugars less than 200, A1c 6.7 Patient is on high doses of 3 oral hypoglycemics Hold right now, and resume as needed Continue sliding scale coverage --Peripheral arterial disease Current Visit: Yes Status: Chronic Duplex scan of right lower extremity Vascular surgery evaluated the patient No vascular intervention needed Advised to continue antibiotic therapy and wound care --DVT prophylaxis Current Visit: Yes Status: Acute On heparin and GI prophylaxis Advance Directives: Yes (Full code) VTE prophylaxis?: Chemical Plan of care discussed with patient/family: Yes Closely monitor the patient and adjust management as needed Plan of care reviewed with the patient and his nurse Web User Experience Strategist recommendations noted and appreciated 03/27/2021; osteomyelitis right foot, on Rocephin and Vanco ID considering long-term antibiotics and PICC placement Patient's blood sugars are reasonable level, did not need oral hypoglycemics Discussed with patient in detail that we will resume his home diabetic medications Once his blood sugars are high, patient verbalized understanding 03/28/2021; continue current antibiotics Elevate the limb, supportive care Vascular evaluated, no vascular intervention continue antibiotics and wound care 03/29/2021; PICC line requested, ID recommended long-term antibiotics stop date 05/03/2021 DC planning per case management with long-term antibiotic arrangement/ Discharge when all the above is set up. 03/30/2021; discussed with case management, unable to process and set up IV antibiotics Due to long weekend. Patient is very upset We will continue current in-house antibiotics and discharge the patient as soon as The home antibiotics are set up 03/31/2021; patient waiting for IV antibiotics to be set up, delayed due to long weekend Continue current antibiotics in-house Possible discharge in 1 to 2 days if IV antibiotics are set up Plan of care reviewed with the patient and his nurse 04/01/2021; DC planning per case management Delay in setting of long-term IV antibiotics for osteomyelitis Due to long holiday weekend, Possible discharge tomorrow if antibiotics are set up 04/02/2021; case management unable to process the long-term IV antibiotic And infusion formalities. Delayed due to the long weekend Patient will be discharged as soon as these medications and home health is set up History Interval history: I have seen and examined the patient at the bedside Patient's chart and medications reviewed Patient feels better but anxious to go home Awaiting IV infusion antibiotic approval by the insurance As well as processing by the infusion company delay due to long weekend Patient has no new symptoms other than wanting to go home Vital signs noted Hospitalist Physical - Constitutional Vitals: Temp Pulse Resp BP Pulse Ox 97.8 F 76 16 144/75 99 04/02/21 07:57 04/02/21 07:57 04/02/21 07:57 04/02/21 07:57 04/02/21 07:57 General appearance: Present: no acute distress, well-nourished, obese (Morbidly obese) - EENT Eyes: Present: PERRL, EOM intact - Neck Neck: Present: supple, normal ROM - Respiratory Respiratory effort: normal Respiratory: bilateral: diminished, negative: rales, rhonchi, wheezing - Cardiovascular Rhythm: regular Heart Sounds: Present: S1 & S2 - Extremities Extremities: no ischemia, No edema, abnormal (Right foot osteomyelitis testing intact) - Abdominal General gastrointestinal: soft, non-tender, non-distended - Integumentary Integumentary: Present: clear, warm - Psychiatric Psychiatric: appropriate mood/affect, cooperative - Neurologic Neurologic: moves all extremities Results - Labs CBC & Chem 7: 03/26/21 08:01 03/30/21 07:37 Labs: Laboratory Last Values WBC 10.5 K/mm3 (4.5-11.0) 03/26/21 08:01 RBC 3.80 M/mm3 (3.65-5.03) 03/26/21 08:01 Hgb 10.7 gm/dl (11.8-15.2) L 03/26/21 08:01 Hct 32.0 % (35.5-45.6) L 03/26/21 08:01 MCV 84 fl (84-94) 03/26/21 08:01 MCH 28 pg (28-32) 03/26/21 08:01 MCHC 33 % (32-34) 03/26/21 08:01 RDW 16.1 % (13.2-15.2) H 03/26/21 08:01 Plt Count 356 K/mm3 (140-440) 03/26/21 08:01 Lymph % (Auto) 18.8 % (13.4-35.0) 03/26/21 08:01 [place] % (Auto) 10.0 % (0.0-7.3) H 03/26/21 08:01 Eos % (Auto) 0.5 % (0.0-4.3) 03/26/21 08:01 Baso % (Auto) 0.3 % (0.0-1.8) 03/26/21 08:01 Lymph # (Auto) 2.0 K/mm3 (1.2-5.4) 03/26/21 08:01 [place] # (Auto) 1.1 K/mm3 (0.0-0.8) H 03/26/21 08:01 Eos # (Auto) 0.0 K/mm3 (0.0-0.4) 03/26/21 08:01 Baso # (Auto) 0.0 K/mm3 (0.0-0.1) 03/26/21 08:01 Seg Neutrophils % 70.4 % (40.0-70.0) H 03/26/21 08:01 Seg Neutrophils # 7.4 K/mm3 (1.8-7.7) 03/26/21 08:01 Sodium 138 mmol/L (137-145) 03/30/21 07:37 Potassium 4.1 mmol/L (3.6-5.0) 03/30/21 07:37 Chloride 103.3 mmol/L (98-107) 03/30/21 07:37 Carbon Dioxide 24 mmol/L (22-30) 03/30/21 07:37 Anion Gap 15 mmol/L 03/30/21 07:37 BUN 9 mg/dL (9-20) 03/30/21 07:37 Creatinine 0.8 mg/dL (0.8-1.3) 03/30/21 07:37 Estimated GFR > 60 ml/min 03/30/21 07:37 BUN/Creatinine Ratio 11 % 03/30/21 07:37 Glucose 130 mg/dL (75-100) H 03/30/21 07:37 POC Glucose 118 mg/dL (70-105) H 04/02/21 07:40 Hemoglobin A1c 6.7 % (4-6) H 03/26/21 08:01 Lactic Acid 2.00 mmol/L (0.7-2.0) 03/25/21 13:54 Calcium 8.4 mg/dL (8.4-10.2) 03/30/21 07:37 Total Bilirubin 1.20 mg/dL (0.1-1.2) 03/26/21 08:01 AST 44 units/L (5-40) H 03/26/21 08:01 ALT 24 units/L (7-56) 03/26/21 08:01 Alkaline Phosphatase 97 units/L (35-129) 03/26/21 08:01 Total Protein 8.3 g/dL (6.3-8.2) H 03/26/21 08:01 Albumin 2.7 g/dL (3.9-5) L 03/26/21 08:01 Albumin/Globulin Ratio 0.5 % 03/26/21 08:01 Vancomycin Trough 13.8 ug/mL (5.0-20.0) 03/28/21 05:47 Chin/IV: Voiding Method Urinal Active Medications - Current Medications Current Medications: Generic Name Dose Route Start Last Admin Trade Name Freq PRN Reason Stop Dose Admin Acetaminophen 650 mg 03/25/21 23:25 03/29/21 05:10 Acetaminophen 325 Mg Tab PO 650 mg Q4H PRN Administration Pain MILD(1-3)/Fever >100.5/JULIAN Famotidine 20 mg 03/26/21 10:00 04/02/21 10:20 Famotidine 20 Mg Tab PO 20 mg BID LISA Administration Furosemide 40 mg 03/28/21 10:00 04/02/21 10:22 Furosemide 40 Mg Tab PO Not Given DAILY LISA Hydromorphone HCl 0.5 mg 03/25/21 23:25 Hydromorphone 1 Mg/1 Ml Inj IV Q3H PRN Pain , Severe (7-10) Vancomycin HCl 1,750 mg/ 535 mls @ 333.333 mls/hr 03/26/21 18:00 04/02/21 05:16 Sodium Chloride IV 333.333 mls/hr Q12H LISA Administration Ceftriaxone Sodium 2 gm in 100 mls @ 200 mls/hr 03/26/21 18:00 04/01/21 17:31 Rocephin/Ns 2 Gm/100 Ml IV 05/03/21 18:29 200 mls/hr Q24H LISA Administration Protocol Insulin Human Lispro 0 unit 03/26/21 07:30 04/02/21 10:20 Insulin Lispro 100 Unit/Ml SUB-Q Not Given ACHS [facility] Protocol Metoclopramide HCl 10 mg 03/25/21 23:25 Metoclopramide 10 Mg/2 Ml Inj IV Q6H PRN Nausea And Vomiting Nifedipine 90 mg 03/28/21 10:00 04/02/21 10:20 Nifedipine Xl 90 Mg Tab PO 90 mg QDAY LISA Administration Ondansetron HCl 4 mg 03/25/21 23:25 Ondansetron 4 Mg/2 Ml Inj IV Q3H PRN Nausea And Vomiting Oxycodone/Acetaminophen 2 tab 03/25/21 23:25 04/02/21 05:16 Oxycodone /Acetaminophen 5-325mg Tab PO 2 tab Q6H PRN Administration Pain, Moderate (4-6) Sodium Chloride 10 ml 03/26/21 10:00 04/01/21 22:45 Sodium Chloride 0.9% 10 Ml Flush Syringe IV 10 ml BID LISA Administration Sodium Chloride 10 ml 03/25/21 23:25 Sodium Chloride 0.9% 10 Ml Flush Syringe IV PRN PRN LINE FLUSH Nutrition/Malnutrition Assess - Dietary Evaluation Nutrition/Malnutrition Findings: Nutrition Notes Start: 03/26/21 11:10 Freq: Status: Active Protocol: Document 04/01/21 08:06 LP (Rec: 04/01/21 08:06 [id number]) Nutrition Notes Need for Assessment generated from: LOS Initial or Follow up Brief Note Subjective/Other Information Screen for LOS. Pt consuming 100% of meals. Nutrition Intervention Revisit per MD consult or patient Sign Off request:
--- NOTE | 2021-04-02 13:30 | Progress Note ---
Assessment and Plan Cultures: 03/27/2021 wound culture: No growth so far. A/P: 60-year-old male with morbid obesity, diabetes mellitus type 2: #Right foot diabetic infection, cellulitis, recent abscess and MRI with evidence of osteomyelitis: Status post I&D more than a month ago by podiatry, more recently I&D at the wound care center. No vascular disease noted. Appreciate Dr. Parry's assistance in obtaining outpatient MRI, showed nonspecific marrow edema in the second and third metatarsal heads and in the medial cuneiform, findings could represent osteomyelitis or reactive marrow change. Favor treating this as osteomyelitis. #Diabetes mellitus type 2: Maintain glycemic control Recs: -IV ceftriaxone 2 g daily plus IV vancomycin per PK consult for 6 weeks ending 05/03/2021 -OK for discharge once abx arranged by case management -ID clinic f/u with me (scheduler maintenance notified) Tahir Redmond MD, FACP [facility] O: [phone] F: [phone] Subjective Date of service: 04/02/21 Interval history: No fever. Awaiting discharge if abx are arranged. Feels his leg is improving well. PICC + Objective - Exam Narrative Exam: Physical Exam: Constitutional: Alert, cooperative. No acute distress Head, Ears, Nose: Normocephalic, atraumatic. External ears, nose normal Eyes: Conjunctivae/corneas clear. No icterus. No ptosis. Neck: Supple, no meningeal signs Cardiovascular: S1, S2 normal. Respiratory: Good air entry, clear to auscultation bilaterally GI: Soft, non-tender; bowel sounds normal. No peritoneal signs Musculoskeletal: Right foot with dressing. RLE swelling, + redness and warmth are much improved. PICC + Skin: No rash or abscess Hem/Lymphatic: No palpable cervical or supraclavicular nodes. No lymphangitis Psych: Mood ok. Affect normal Neurological: Awake, alert, oriented. No gross abnormality - Constitutional Vitals: Vital Signs Temp Pulse Resp BP Pulse Ox 97.8 F 76 16 144/75 99 04/02/21 07:57 04/02/21 07:57 04/02/21 07:57 04/02/21 07:57 04/02/21 07:57 Temperature -Last 24 Hours Temperature 97.8 F Temperature 97.9 F Temperature 97.5 F Temperature 98.2 F Temperature 98.9 F - Labs CBC & Chem 7: 03/26/21 08:01 03/30/21 07:37 Labs: Abnormal lab results 04/01/21 04/01/21 04/02/21 Range/Units 16:16 21:04 07:40 POC Glucose 178 H 120 H 118 H (70-105) mg/dL 04/02/21 Range/Units 11:25 POC Glucose 119 H (70-105) mg/dL
[2021-04-02 16:08] LABS: BUN/Creatinine Ratio 11; Blood Urea Nitrogen 10 mg/dL (9-20); Calcium 8.6 mg/dL (8.4-10.2); Hemolysis Index 0
--- NOTE | 2021-04-02 16:21 | Discharge Summary ---
Providers - Providers Date of Admission: 03/25/21 16:57 Date of discharge: 04/02/21 Attending physician: MARBELLA STERLING 03/25/21 16:57 Consult to Physician [CONS] Stat Comment: Consulting Provider: ELIAS SANDHU Physician Instructions: Reason For Exam: diabetic foot infection 03/26/21 07:16 Consult to Physician [CONS] Routine Comment: Consulting Provider: RAS NAVARRETE Physician Instructions: Reason For Exam: PAD 03/26/21 07:17 Consult to Wound/ET Nurse [CONS] Routine Reason For Exam: wound eval 03/26/21 13:01 Consult to Physician [CONS] Routine Comment: Consulting Provider: DEJA SIDHU Physician Instructions: Reason For Exam: Diabetic foor wound. osteo, on outpatient MRI 03/29/21 16:24 Consult to PICC Line RN [CONS] Routine Reason For Exam: PICC Type Line:: PICC 03/29/21 16:25 Consult to Case Management [CONS] Routine Services Needed at Discharge: Other Comment:: IV Abx Additional Physician Instructions: [facility] ([facility] O: [phone] F: [phone] OUTPATIENT PARENTERAL ANTIBIOTIC THERAPY (OPAT) ORDERS Diagnoses: Right foot osteomyelitis Antimicrobial administration: IV ceftriaxone 2 g daily plus IV vancomycin 1250 mg every 12 hours for 6 weeks ending 05/03/2021 - Remove PICC line after last dose unless otherwise instructed. Lines: Maintain IV access with weekly dressing changes and locks per protocol. Lab monitoring: - CBC with differential, Creatinine, ALT, AST, Vancomycin trough, ESR, CRP once a week every Thursday/Thursday while on IV antibiotics. Please fax results to [phone] and call [phone] for critical lab results. MD [facility] Primary care physician: MELODIE STEVENSON Hospitalization Reason for admission: Osteomyelitis, abscess Rt foot Condition: Stable Pertinent studies: Foot x-rays right Lower extremity arterial Doppler lower extremity venous Doppler ankle-brachial index Hospital course: 61-year-old male patient with morbid obesity type 2 diabetes mellitus was admitted through emergency room with right foot infection, patient had outpatient incision drainage of the abscess by podiatry about 1 month prior to this admission and was going to wound clinic. Due to concern for ongoing infection patient underwent MRI as outpatient and 1 more incision drainage and drainage of an abscess , findings possible for early osteomyelitis. Patient was evaluated by wound care ID, and surgery, ID has recommended IV Rocephin during the hospital day and long-term post discharge total 6 weeks total 6 weeks ending date 05/03/2021. Case management has set up home health and long-term IV antibiotics. Patient's blood sugars were in the normal range, did not require any diabetic medications, patient advised to check blood sugars and in consultation with primary care physician, if needed, patient's hemoglobin A1c is 6.7. Today patient is comfortable no new complaints vital signs stable, physical examination prior to discharge is unremarkable Patient is hemodynamically and clinically stable at discharge. Discharge Diagnosis: --Right foot osteomyelitis; Current Visit: Yes Status: Acute Continue Rocephin and vancomycin per ID ID advised and informed CM for long-term IV antibiotics IV ceftriaxone 2 g daily plus IV vancomycin 1250 mg every 12 hours for 6 weeks ending 05/03/2021 PICC line placed today, case management to set up home health and IV antibiotics Delay in the process due to long weekend . --SIRS (systemic inflammatory response syndrome) Current Visit: Yes Status: Acute Patient has leukocytosis and tachycardia secondary to osteomyelitis of the foot --Diabetic wound/ of right lower extremity Current Visit: Yes Status: Acute Continue IV antibiotics, Rocephin and vancomycin Stop date 05/03/2021, CM processing IV infusion post discharge -- Hypertension Current Visit: Yes Status: Chronic : Well controlled continue antihypertensives --Hyponatremia; resolved Current Visit: Yes Status: Acute --Severe protein calorie malnutrition; Current Visit: Yes Status: Acute Hypoalbuminemia nutrition supplements. --Type 2 diabetes mellitus /A1c 6.7 Current Visit: Yes Status: Chronic t Patient's blood sugars are well controlled Blood sugars less than 200, A1c 6.7 Patient is on high doses of 3 oral hypoglycemics Hold right now, and resume as needed Continue sliding scale coverage --Peripheral arterial disease Current Visit: Yes Status: Chronic Duplex scan of right lower extremity Vascular surgery evaluated the patient No vascular intervention needed Advised to continue antibiotic therapy and wound care --DVT prophylaxis Current Visit: Yes Status: Acute On heparin and GI prophylaxis Stable at discharge Disposition: DC- TO HOME OR SELFCARE Final Discharge Diagnosis (Prints w/discharge instructions): Right foot osteomyelitis. Diabetic foot wound. SIRS/sepsis. Hyponatremia. Hypertension. Severe protein calorie malnutrition. Type 2 diabetes mellitus. Peripheral arterial disease Time spent for discharge: 35 min Core Measure Documentation - Palliative Care Palliative Care/ Comfort Measures: Not Applicable - Core Measures Any of the following diagnoses?: none Exam - Constitutional Vitals: Temp Pulse Resp BP Pulse Ox 97.8 F 76 16 144/75 99 04/02/21 07:57 04/02/21 07:57 04/02/21 07:57 04/02/21 07:57 04/02/21 07:57 General appearance: Present: no acute distress, well-nourished, obese (Morbidly obese) - EENT Eyes: Present: PERRL, EOM intact - Neck Neck: Present: supple, normal ROM - Respiratory Respiratory effort: normal Respiratory: bilateral: diminished, negative: rales, rhonchi, wheezing - Cardiovascular Rhythm: regular Heart Sounds: Present: S1 & S2 - Extremities Extremities: no ischemia, No edema, abnormal (Right foot osteomyelitis dressing in place) - Abdominal General gastrointestinal: Present: soft, non-tender, non-distended, normal bowel sounds - Integumentary Integumentary: Present: clear, warm - Musculoskeletal Musculoskeletal: strength equal bilaterally, generalized weakness - Psychiatric Psychiatric: appropriate mood/affect, cooperative - Neurologic Neurologic: moves all extremities Plan Activity: advance as tolerated, fall precautions Diet: diabetic Wound: per wound nurse instructions Additional Instructions: ID recommend IV ceftriaxone 2 g daily plus IV vancomycin per PK consult for 6 weeks ending 05/03/2021. WOUND care as needed. If you have worsening symptoms contact MD or go to emergency room. Strongly advised to comply with medications diet follow-up visits. Your sugars are in the lower range during the hospital stay , you did not need any diabetic medications.check your blood sugars , check with your primary care physician before resuming your diabetic medications[glimepiride, Metformin and Actos] Follow up with: MELODIE STEVENSON MD [Primary Care Provider] - 3-5 Days DEJA SIDHU MD [Staff Physician] - 7 Days JUAN CROCKER DO [Staff Physician] - 14 Days Prescriptions: Famotidine [Pepcid] 20 mg PO BID #60 tablet oxyCODONE /ACETAMINOPHEN [Percocet 5/325 mg] 1 tab PO Q8H PRN #21 tablet PRN Reason: Pain, Moderate (4-6)
[2021-04-02] MEDS: cefTRIAXone/NS 2 GM/100 ML 2 GM/100 ML BAG IV SCH (17:22)
== END 2021-04-02 20:35 | disposition home or self-care (01) | DRG 637 ==
LOC: ED 12:55 → 3A 16:57 → 3B-SURG 18:56
PROVIDERS: ADMIT Internal Medicine; ATTEND Internal Medicine
DX: E11.69 Type 2 diabetes mellitus with other specified complication (principal); E43 Unspecified severe protein-calorie malnutrition; L03.115 Cellulitis of right lower limb; E11.621 Type 2 diabetes mellitus with foot ulcer; E87.1 Hypo-osmolality and hyponatremia; I10 Essential (primary) hypertension; E11.51 Type 2 diabetes mellitus with diabetic peripheral angiopathy without gangrene; M86.8X7 Other osteomyelitis, ankle and foot; Z68.41 Body mass index [BMI] 40.0-44.9, adult; R65.10 Systemic inflammatory response syndrome (SIRS) of non-infectious origin without acute organ dysfunction
CPT/HCPCS: 36415; 80048; 80053; 80202; 82140; 82962; 83036; 85025; 87116; 90471; 90715; 93922; 93925; 96365; 96368; G0378; J0295; J0696; J1815; J3370; J7040

== ENCOUNTER 2021-04-08 10:57 | Outpatient (CLI) | payer MEDICAID ==
[2021-04-08] MEDS ORDERED: LIDOCAINE (4%) 40 MG/ML TOPICAL SOLN 50 ML BOTTLE TP ONE (12:47)
== END 2021-04-08 10:58 | disposition home or self-care (01) ==
LOC: WOUND 10:57
PROVIDERS: ATTEND Surgery
DX: E11.621 Type 2 diabetes mellitus with foot ulcer (principal); L97.512 Non-pressure chronic ulcer of other part of right foot with fat layer exposed; L02.611 Cutaneous abscess of right foot; E11.42 Type 2 diabetes mellitus with diabetic polyneuropathy; I10 Essential (primary) hypertension; L84 Corns and callosities; E66.9 Obesity, unspecified; Z68.39 Body mass index [BMI] 39.0-39.9, adult; Z87.891 Personal history of nicotine dependence

== ENCOUNTER 2021-04-29 10:58 | Outpatient (CLI) | payer MEDICAID | END 2021-04-29 10:59 | disposition home or self-care (01) | LOC: WOUND 10:58 | PROVIDERS: ATTEND Surgery | DX: E11.621 Type 2 diabetes mellitus with foot ulcer (principal); L97.518 Non-pressure chronic ulcer of other part of right foot with other specified severity; L02.611 Cutaneous abscess of right foot; E11.42 Type 2 diabetes mellitus with diabetic polyneuropathy; I10 Essential (primary) hypertension; L84 Corns and callosities; E66.9 Obesity, unspecified; Z68.39 Body mass index [BMI] 39.0-39.9, adult; Z87.891 Personal history of nicotine dependence | CPT/HCPCS: 99212; G0463 ==